=== PATIENT | female | born 2005 | race Two or more races ===

== ENCOUNTER 2023-11-08 23:52 | Emergency (ER) | payer OTHER, SELFPAY ==
[2023-11-09] VITALS: BP 111/79; PULSE 88; RESP 16; TEMP 36.1; O2SAT 100; BMI 18.5
[2023-11-09 03:12] VITALS: BP 118/72; PULSE 80; RESP 17; TEMP 36.6; O2SAT 99
--- NOTE | 2023-11-09 03:53 | ED_ITS ---
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 Cat is fully immunized and patient received rabies vaccination last year no active bleeding with the area of bite Related Data Previous Rx's ?Medication ?Instructions ?Recorded amoxicillin 875 mg-potassium 1 tab PO BID #20 tabs 11/09/23 clavulanate 125 mg tablet Allergies Allergy/AdvReac Type Severity Reaction Status Date / Time No Known Allergies Allergy Verified 11/09/23 00:02 Review of Systems 2 Review of Systems: Yes all other systems are reviewed and are negative PMFSH Social History Social History Advance Directives: No Advance Directives Information Provided: Yes Do you have a plan to hurt others: No Plan Physical Exam ED Vital Signs: Vital Signs - 24 hr 11/09/23 00:00 11/09/23 03:12 11/09/23 04:04 Temperature 97.0 F 97.9 F 97.9 F Pulse Rate 88 80 89 Respiratory Rate 16 17 16 Blood Pressure 111/79 118/72 125/81 Pulse Oximetry 100 99 100 Oxygen Delivery Method Room Air Room Air Room Air 11/09/23 05:45 Temperature 97.9 F Pulse Rate 89 Respiratory Rate 16 Blood Pressure 125/81 Pulse Oximetry 100 Oxygen Delivery Method Room Air BMI result Body Mass Index 18.5 Extrem Elbow/forearm/wrist images: 2 1. Superficial bite iglbert no skin breakdown Medications Administered Discontinued Medications Generic Name Dose Route Start Last Admin Trade Name Freq PRN Reason Stop Dose Admin Amoxicillin/Clavulanate Potassium 875 mg 11/09/23 03:59 11/09/23 04:35 Amoxicillin/Potassium Clav 875 Mg Tablet PO 11/09/23 04:00 875 mg ONCE ONE Administration Medical Decision Making Medical Decision Making [facility] Narrative: Patient immunized against rabies bit by cat was also immunized very superficial bite gilbert on the left forearm will give prophylactic Augmentin Discharge Plan Discharge Clinical Impression: Cat bite Patient Disposition: Home, Self-Care Instructions: Animal Bite (ED) Additional Instructions: Take antibiotic as prescribed Confirm about the Cat immunization status Watch the cat for 10 days If any rabies symptoms in Cat check your rabies titer and follow with PCP Prescriptions: New amoxicillin-pot clavulanate 875-125 mg tablet 1 tab PO BID Qty: 20 0RF Interventions: ED Discharge Assessment Last Done: 11/09/23 05:45 Discharge Date/Time: 11/09/23 04:45 Print Language: Mosotho
[2023-11-09 04:04] VITALS: BP 125/81; PULSE 89; RESP 16; TEMP 36.6; O2SAT 100
[2023-11-09] MEDS: Amoxicillin/Potassium Clav 875 MG TABLET PO (04:35)
[2023-11-09 05:45] VITALS: BP 125/81; PULSE 89; RESP 16; TEMP 36.6; O2SAT 100
== END 2023-11-09 04:45 | disposition home or self-care (01) ==
PROVIDERS: Emergency Provider Internal Medicine
DX: S51.852A Open bite of left forearm, initial encounter (principal); W55.01XA Bitten by cat, initial encounter; Y93.9 Activity, unspecified; Y92.9 Unspecified place or not applicable; Y99.0 Civilian activity done for income or pay
CPT/HCPCS: 99283

== ENCOUNTER 2024-06-26 12:57 | Outpatient (AMB) | payer OTHER, SELFPAY ==
--- OUTSIDE RECORDS SUMMARY | 2024-06-26 13:03 | XMS_ITS | Encounter Summary ---
Author Organization [facility] Address [address] [place] [phone] Phone Care Team Providers Care Quality Control Head Name Role Phone Moriah Carbajal MD Primary Care Provider [phone] Reason for Visit * Reason Comments Med Refill Encounter Details Date Type Department Care Team ([facility] st Contact Info) Description 06/03/2021 Refill [facility] [place] [address] [place] [address] Moriah Carbajal MD [address] [place] [address] Dysmenorrhea Social History Tobacco Use Types Packs/Day Years Used Date Smoking Tobacco: Never Smokeless Tobacco: Never Alcohol Use Standard Drinks/Week Comments No 0 (1 standard drink = 0.6 oz pur e alcohol) Hunger/Food Answer Date Recorded In the last 12 months, did y ou or your family ever eat less than you felt you should because there wasn't enough money for food? No 02/25/2021 Stable Housing Answer Date Recorded Are you worried that in the next 2 months you may not have stable housing? No 02/25/2021 Transportation Concerns Answer Date Rec orded In the last 12 months, have you or your family ever had to go without healthcare because you didn't have a way to get there? No 02/25/2021 Hazards in Home Answer Date Recorded Think about the place you li ve. Do you have problems with any of the following? Pests (mice or roaches), mold, no/not working smoke detectors, water leaks, no window guards. No 2020 Financing Utilities Answer Date Recorde d In the last 12 months, has t he electric, gas, oil, or water company threatened to shut off your services in your home? No 02/25/2021 Safety at Home Answer Date Recorded Are you or your family worried about feeling saf e in your home? No 02/25/2021 Outside Support Answer Date Recorded Do you feel that you need mo re support from other people or programs to help you care for yourself or your family? No 02/25/2021 Understanding Health Concerns Answer Da te Recorded Do you need help understandi ng your or your child's healthcare needs (diagnosis, medications, plan, etc.)? No 02/25/2021 Financing Health Concerns Answer Date R ecorded In the last 12 months, was t here a time when your child needed to see a doctor or get medications or supplies but could not because of cost? No 02/25/2021 Missing School or Work Answer Date Jose Miguel rded Did you or your child miss s chool or work because of a health problem that could have been avoided? No 02/25/2021 Comments No Sex and Gender Information Value Date Recorded Sex Assigned at Not on file Legal Sex Female 2:33 PM EDT Gender Identity Female 04/03/2023 7:59 AM EST Sexual Orientation Straight 08/16/2022 9: 35 AM EDT documented as of this encounter Miscellaneous Notes * Telephone Encounter - Von Wolf LPN - 06/03/2021 2:39 PM EST [facility] is requesting a refill on control. Last PE 02/25/21 documented in this encounter Plan of Treatment Not on file documented as of this encounter Visit Diagnoses Diagnosis Dysmenorrhea documented in this encounter Care Teams Quality Control Head Relationship Specialty Start Date End Date Moriah Carbajal MD [address] [place] [id number] PCP - General Pediatrics 11/13/18 03/11/24 documented as of this encounter
--- OUTSIDE RECORDS SUMMARY | 2024-06-26 13:03 | XMS_ITS | Encounter Summary ---
Author Organization [facility] Address [address] [place] [address] Phone Care Team Providers Care Spectacle Truer Name Role Phone Unavailable Primary Care Provider Unavailabl e Reason for Visit * Reason Comments Med Refill Encounter Details Date Type Department Care Team ([facility] Contact Info) Description 05/30/2024 Refill [facility] [place] [address] [place] [address] Moriha Carbajal MD [address] [place] [address] Dysmenorrhea Social History Tobacco Use Types Packs/Day Years Used Date Smoking Tobacco: Never Smokeless Tobacco: Never Alcohol Use Standard Drinks/Week Comments No 0 (1 standard drink = 0.6 oz pur e alcohol) Hunger/Food Answer Date Recorded In the last 12 months, did y ou or your family ever eat less than you felt you should because there wasn't enough money for food? No 08/16/2022 Stable Housing Answer Date Recorded Are you worried that in the next 2 months you may not have stable housing? No 08/16/2022 Transportation Concerns Answer Date Rec orded In the last 12 months, have you or your family ever had to go without healthcare because you didn't have a way to get there? No 08/16/2022 Hazards in Home Answer Date Recorded Think about the place you li ve. Do you have problems with any of the following? Pests (mice or roaches), mold, no/not working smoke detectors, water leaks, no window guards. Yes 2022 Financing Utilities Answer Date Recorde d In the last 12 months, has t he electric, gas, oil, or water [employer] threatened to shut off your services in your home? No 08/16/2022 Safety at Home Answer Date Recorded Are you or your family worried about feeling saf e in your home? No 08/16/2022 Outside Support Answer Date Recorded Do you feel that you need mo re support from other people or programs to help you care for yourself or your family? No 08/16/2022 Understanding Health Concerns Answer Da te Recorded Do you need help understandi ng your or your child's healthcare needs (diagnosis, medications, plan, etc.)? No 08/16/2022 Financing Health Concerns Answer Date R ecorded In the last 12 months, was t here a time when your child needed to see a doctor or get medications or supplies but could not because of cost? No 08/16/2022 Missing School or Work Answer Date Jose Miguel rded Did you or your child miss s chool or work because of a health problem that could have been avoided? No 08/16/2022 Comments No Sex and Gender Information Value Date Recorded Sex Assigned at Not on file Legal Sex Female 2:33 PM EDT Gender Identity Female 04/03/2023 7:59 AM EST Sexual Orientation Straight 08/16/2022 9: 35 AM EDT documented as of this encounter Miscellaneous Notes * Telephone Encounter - Frantz Spence LPN - 05/30/2024 10:06 AM EST Pharm requesting refill of OCP. Pt no longer under [facility]PA care documented in this encounter Plan of Treatment Not on file documented as of this encounter Visit Diagnoses Diagnosis Dysmenorrhea documented in this encounter
--- OUTSIDE RECORDS SUMMARY | 2024-06-26 13:03 | XMS_ITS | Clinical Summary ---
Author Organization [facility] Address [address] [place] [phone] Phone Care Team Providers Care Sales And Marketing Specialist Name Role Phone Unavailable Primary Care Provider Unavailabl e Allergies No known active allergies Medications loratadine (Claritin) 10 MG tabletIndication s:Nasal congestion Take 1 tablet (10 mg total) by mouth daily. 30 tablet 5 0 Active Spacer/Aero-Hold ing Chambers (OptiChamber Advantage-Med Mask) miscIndications: Mild intermittent asthma without complication Use as directed with inhaler. 2 each 0 Active Additional Information Patient not taking.Reported on 02/25/2021 albuterol HFA 108 (90 Base) MCG/ACT inhalerIndicatio ns:Mild intermittent asthma without complication Inhale 2 puffs every 4 (four) hours as needed for wheezing. 1 Units 4 Active levonorgestrel-e thinyl estradiol (Sronyx) 0.1-20 MG-MCG per tabletIndication s:Dysmenorrhea Take 1 tablet by mouth once daily. 84 tablet 4 Active Active Problems Problem Noted Date Diagnosed Date COVID 05/19/2021 Dysmenorrhea 02/25/2021 Overview (08/16/2022): 08/16/2022 (age 17yr): : Doing well on OCP, continue. Detailed History and Chronology of care: 02/25/2021 (age 16yr): regular menses. No FHx blood clots, no hx migraines, no TOB. Will start OCPs. Assessment & Plan (08/16/2022 9:23 AM EDT): 08/16/2022 (age 17yr): : Doing well on OCP, continue. Assessment & Plan (05/02/2021 5:46 PM EST): 05/02/2021 (age 16yr): Doing well on OCP, continue. Assessment & Plan (02/25/2021 6:08 PM EDT): 02/25/2021 (age 16yr): regular menses. No FHx blood clots, no hx migraines, no TOB. Will start OCPs. Epistaxis 12/07/2019 Overview (08/16/2022): 08/16/2022 (age 17yr): Having nose bleeds 1-2 times per months over the last 4 months. Short lived. Always left nostril. Has been using vaseline. - Will consider seeing ENT, will reach out if this is desired. Detailed History and Chronology of care: 12/07/2019 (age 14 yr 9 mo): epistaxis x 1 month, small amounts, once per week. It seems to be resolving. Last episode 4 weeks ago. 02/25/2021 (age 16yr): fully resolved. Assessment & Plan (08/16/2022 9:37 AM EDT): 08/16/2022 (age 17yr): : Having nose bleeds 1-2 times per months over the last 4 months. Short lived. Always left nostril. Has been using vaseline. - Will consider seeing ENT, will reach out if this is desired. Assessment & Plan (02/25/2021 2:22 PM EDT): 02/25/2021 (age 16yr): fully resolved. Assessment & Plan (12/07/2019 1:06 PM EDT): 12/07/2019 (age 14 yr 9 mo): continue to monitor, seems to be resolved on its own. Underweight 08/14/2018 Overview (11/17/2022): 08/16/2022 (age 17yr): :History of low BMI with concern for anorexia, good weight gain with cyproheptidine in the past. Weight loss 4 lbs over the last year noted 02/2021. Labs not concerning (CBC, Metab panel). BMI is stable just above 3rd %ile. Stopped med last year. - Pt requesting restart cyproheptadine. Rx'd today. Detailed History and Chronology of care: 02/05/2018 - 04/2018. Good weight gain with cyproheptidine (and was Rx'd ensure - was he taking it?) 04/2018 began losing weight again. BMI down to 4t %ile 03/25/[place] [facility] [place], thought due to calorie restriction. Was referred to knife machine operator. - following ED visit, has had slow weight gain. 06/16/2019, Rx'd cyproheptadine again for continued low BMI despite slow weight loss since 03/25/2020 12/07/2019 (age 14 yr 9 mo): good weight gain on cyprohept, likely not taking regularly (OK) 02/25/2021 (age 16yr): Weight loss 4 lbs over the last year,not taking cyproheptadine. Will restart at 4 mg TID. Labs not concerning (CBC, Metab panel). Assessment & Plan (08/16/2022 9:31 AM EDT): 08/16/2022 (age 17yr): History of low BMI with concern for anorexia, good weight gain with cyproheptidine in the past. Weight loss 4 lbs over the last year noted 02/2021. Labs not concerning (CBC, Metab panel). BMI is stable just above 3rd %ile. Stopped med last year. - Pt requesting restart cyproheptadine. Rx'd today. Assessment & Plan (05/02/2021 5:49 PM EST): 05/02/2021 (age 16yr): History of low BMI with concern for anorexia, good weight gain with cyproheptidine in the past. Weight loss 4 lbs over the last year noted 02/2021. Labs not concerning (CBC, Metab panel). 4 lb weight gain over 2 months on cyproheptadine. Assessment & Plan (02/25/2021 6:07 PM EDT): 02/25/2021 (age 16yr): History of low BMI with concern for anorexia, good weight gain with cyproheptidine in the past. Weight loss 4 lbs over the last year. 02/25/2021 (age 16yr): Has been eating 3 meals per day recently. She is not taking cyproheptadine. Will restart at 4 mg TID. Rx sent. Wt Readings from Last 3 Encounters: 02/25/21 90 lb (40.8 kg) (<1 %, Z= -2.72)* 12/07/19 94 lb 3.2 oz (42.7 kg) (3 %, Z= -1.94)* 06/16/19 90 lb (40.8 kg) (1 %, Z= -2.22)* * Growth percentiles are based on CDC (Girls, 2-20 Years) data. Assessment & Plan (12/07/2019 1:05 PM EDT): 12/07/2019 (age 14 yr 9 mo): weight up 4 lbs over 6 months, taking cyproheptidine. BMI back to baseline at 7-8%ile. Continue cyproheptadine for now. She reports taking it TID since 06/2019, but she only had one RF given back in June. Whatever she is taking, she is gaining weight so the goal is being met. Follow weight in 3-4 months. Has been referred to nutrition in the past. Will nee lab work up, EKG, adol med referral if weight drops again. History: 02/05/2018 - 04/2018. Good weight gain with cyproheptidine (and was Rx'd ensure - was he taking it?) 04/2018 began losing weight again. BMI down to 4t %ile 03/25/2019 [facility] [place], thought due to calorie restriction. Was referred to knife machine operator. - following ED visit, has had slow weight gain. 06/16/2019, Rx'd cyproheptadine again for continued low BMI despite slow weight loss since 03/25/2020 12/07/2019 (age 14 yr 9 mo): good weight gain on cyprohept, likely not taking regularly (OK) Assessment & Plan (12/04/2019 9:34 AM EDT): 06/16/2019 Her Weight is up only 2 lbs in 2.5 months. BMI is at the 4th percentile. Restart cyproheptidine. Will need labs, EKG, and refer to adolescent medicine if weight gain does not crab picker. Assessment & Plan (04/25/2019 3:42 PM EST): Weight is up 1.5 lbs in 1 month, will defer on checking labs today. Follow up 4- 6 weeks. I discussed the possibility of referral to [facility] if weight gain is not adequate or falls off. Assessment & Plan (08/14/2018 9:34 AM EDT): Has not been consistent with taking cyprohetadine lately and weight is back down. I have refilled this medication today and encouraged patient to take it to help improve appetite. Anxiety 04/22/2018 Overview (08/16/2022): 08/16/2022 (age 17yr): symptoms of social anxiety have improved over time. She thinks being out high school has helped. Detailed History and Chronology of care: 12/07/2019 (age 14 yr 9 mo): .Doing OK right now. Saw Angle through N in the past, she didn't feel it helped. She is doing a lot better now and doesn't feel she needs therapy at the present time. 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 Suggest short term therapy with [facility]. Will call to make intake appt ( not available for warm hand off today) Assessment & Plan (08/16/2022 9:37 AM EDT): 08/16/2022 (age 17yr): symptoms of social anxiety have improved over time. She thinks being out high school has helped. Assessment & Plan (05/02/2021 5:45 PM EST): 05/02/2021 (age 16yr): symptoms of social anxiety which cause nausea school health aide and cause her to cancel plans with friends. Suggest short term therapy with [facility]. Will call to make intake appt ([facility] not available for warm hand off today) Assessment & Plan (02/25/2021 6:08 PM EDT): 02/25/2021 (age 16yr): Having some issues with anxiety, gets nauseated prior going to school. Not interested in therapy or learning coping skills. Nausea related to anxiety prevents eating. Needs OV to discus further, may want to discuss meds. Assessment & Plan (12/07/2019 1:06 PM EDT): 12/07/2019 (age 14 yr 9 mo): continue to monitor, no current intervention needed. Assessment & Plan (08/14/2018 9:31 AM EDT): Improving with therapy ADHD 08/01/2017 Overview (08/16/2022): 08/16/2022 (age 17yr): Currently on no medication, doing well. Detailed History and Chronology of care: Concerta 27 mg - prescribed by [facility] as off 06/26/2014 Assessment & Plan (08/16/2022 9:21 AM EDT): 08/16/2022 (age 17yr): Currently on no medication, doing well. Assessment & Plan (02/25/2021 6:07 PM EDT): 02/25/2021 (age 16yr): Currently on no medication, doing well. Assessment & Plan (12/07/2019 12:07 PM EDT): 12/07/2019 (age 14 yr 9 mo): still doing well without meds Assessment & Plan (08/14/2018 9:33 AM EDT): Acute worsening in ability to concentrate. Patient continues to see therapist for anxiety. Will check hemoglobin levels today since she had a history of anemia. Mild intermittent asthma 08/01/2017 Overview (08/16/2022): 08/16/2022 (age 17yr): ProAir as needed, no controller medication Assessment & Plan (08/16/2022 9:22 AM EDT): 08/16/2022 (age 17yr): ProAir as needed, no controller medication Assessment & Plan (02/25/2021 6:06 PM EDT): 02/25/2021 (age 16yr): ProAir as needed, no controller medication Assessment & Plan (12/07/2019 12:07 PM EDT): 12/07/2019 (age 14 yr 9 mo): no current issues, last albuterol was during the winter. Assessment & Plan (08/14/2018 9:31 AM EDT): Currently well controlled. Resolved Problems Problem Noted Date Diagnosed Date Resolved Date Anemia 08/14/2018 12/04/2019 Overview (06/16/2019): History of borderline anemia, Hgb 11.0 in August, Labs done [place] [facility] [place]2019 show hgb of 12.6. Assessment & Plan (06/16/2019 4:26 PM EST): Currently not anemic Assessment & Plan (08/14/2018 9:33 AM EDT): Having difficulties with concentration will screen for anemia again today. Encouraged diet high in iron. Other acne 08/14/2018 02/25/2021 Overview (02/25/2021): 02/25/2021 (age 16yr): no current issues. Detailed History and Chronology of care: August 2018 - November 2018: Doxycycline 100 mg BIDand then switch to topical Clindamycin solution. 12/07/2019 (age 14 yr 9 mo): doing much better, using ceraVe. Not taking doxy. Assessment & Plan (02/25/2021 2:22 PM EDT): 02/25/2021 (age 16yr): no current issues. Assessment & Plan (12/07/2019 12:12 PM EDT): 12/07/2019 (age 14 yr 9 mo): doing much better, using ceraVe. Not taking doxy. Encounters Date Type Department Care Team Description 05/30/2024 Refill [facility] - [address] [id number] Moriah Carbajal MD Dysmenorrhea from Last 3 Months Immunizations Immunization Administration Dates Next Due COVID-19 Pfizer, bivalent, 12+ years 08/16/2022 COVID-19 Pfizer, la-sucros e, 12+ years 06/19/2021 DTaP 02/23/2012, 5,2003,07/02,2003 HPV Vaccine 9 Valent 08/14/2018,08/02/2017 Hep A, ped/adol 05/19/2011,03/18/2010 Hep B, ped/adol 2003,2003,2003 HiB 05/16/2004, 4,2003,04/27 IPV 03/22/2016, 4,2003,04/27 Influenza, injectable, quadr ivalent, preservative free 08/16/2022,02/25/2021,07/06/2020,02/05,03/22/2016 Influenza, intradermal, quad rivalent, preservative free 03/22/2016,06/24/2013,02/07/2012,05/19,04/18/2011,01/31/2010 MMR 02/28/2007,02/25/2004 Meningococcal B Trumenba 08/16/2022,02/25/2021 Meningococcal Conj (Menactra) MCV4P 12/07/2019,0 06/26/2014 Pneumococcal Conjugate 05/16/2004,2003,2003,04/27 Tdap 06/26/2014 Varicella 03/18/2010,02/25/2004 Family History Medical History Relation Name Comments No Known Problems Father Elmer Hyperlipidemia Maternal Grandmother No Known Problems Mother Nola Diabetes Paternal Grandfather Diabetes Paternal Grandmother Hyperlipidemia Paternal Grandmother Relation Name Status Comments Father Elmer Alive Maternal Grandfather Alive Maternal Grandmother Alive Mother Nola Alive Paternal Grandfather Alive Paternal Grandmother Alive Social History Tobacco Use Types Packs/Day Years Used Date Smoking Tobacco: Never Smokeless Tobacco: Never Tobacco Cessation:Counseling Given: No Alcohol Use Standard Drinks/Week Comments No 0 [...] Orientation Straight 08/16/2022 9: 35 AM EDT Last Filed Vital Signs Vital Sign Reading Time Taken Comments Blood Pressure 114/72 08/16/2022 8:59 AM EDT Pulse 96 08/16/2022 8:59 AM EDT Temperature 36.2 ??C (97.2 ??F) 12/07/2019 11:32 AM E DT Respiratory Rate - - Oxygen Saturation - - Inhaled Oxygen Concentration - - Weight 43.5 kg (96 lb) 08/16/2022 8:59 AM EDT Height 157.3 cm (5' 1.91 ) 08/16/2022 8:59 AM ED T Body Mass Index 17.61 08/16/2022 8:59 AM EDT Plan of Treatment Health Maintenance Due Date Last Done Comments Influenza Vaccines (#1) 2023 08/17/19, 02/25/2021, 07/06/2020, Additional history exists COVID-19 Vaccine (2023-2 5 season) 2024 08/16/2022, 06/19/2021, 10/28/2020, Additional history exists DTaP,Tdap,and Td Vaccines (7 - Td or Tdap) 06/26/2024 06/26/2014, 02/23/2012, 05/16/2004, Additional history exists Hepatitis B Vaccines Completed 2003, 2003, 2003 HIB Vaccines Completed 05/16/2004, 08/12, 2003, Additional history exists Pneumococcal Vaccine Completed 05/16/2004, 2003, 2003, Additional history exists MMR Vaccines Completed 02/28/2007, 02/25/2004 Varicella Vaccines Completed 03/18/2010, 02/25/2004 Hepatitis A Vaccines Completed 05/19/2011, 03/18/20 10 IPV Vaccines Completed 03/22/2016, 11/11, 2003, Additional history exists HPV Vaccines Completed 08/14/2018, 08/02/2017 Meningococcal Vaccine Completed 12/07/2019, 015 Men B Vaccine Completed 08/16/2022, 02/25/2021 Procedures * Due to [place] riskmethods law, this organization might not be sharing sensitive test results. Procedure Name Priority Date/Time Associated Diagnosis Comments CHLAMYDIA AND GONORRHEA, AMPLIFIED Routine 08/16/2022 10:37 AM EDT Encounter for screening examination for chlamydial infection from Last 3 Months or Most Recently Relevant to Health Maintenance Results * Due to [place] riskmethods law, this organization might not be sharing sensitive test results. * Chlamydia and Gonorrhoea, Amplified (08/16/2022 10:37 AM EDT) Chlamydia Trachomatis, DNA Probe NEGATIVE (NEG) [facility] Comment: No Chlamydia Trachomatis RNA detected in this patient's sample ? (REFERENCE RANGE/NORMAL VALUE: NOT DETECTED) ? Note: This test uses endocrinology physician- mediated amplification method to detect rRNA from C. Trachomatis URINE GC AMP PROBE NEGATIVE (NEG) [facility] Comment: No Neisseria Gonorrhoeae RNA detected in this patient's sample ? (REFERENCE RANGE/NORMAL VALUE: NOT DETECTED) ? NOTE: This test uses endocrinology physician-mediated amplification method to detect rRNA from N.Gonorrhoeae. A negative result does not preclude infection. In the case of a negative urine result, testing of an endocervical(female) or urethral (male) specimen is recommended if there is high clinical suspicion of infection. Due to very high sensitivity of Nucleic Acid Amplification Test, false positive results may occur. Therefore, specimen handling is extremely important. In patients in whom the disease is unlikely, additional sample for testing should be considered after an initial positive result. The performance characteristics of this test have not been evaluated in children. The Aptima Combo2 assay is not intended for the evaluation of suspected sexual abuse or for other medico-legal indications. The ordering provider should assess if the patient had consensual sex without risk of sexual abuse. Consult the [facility] if needed. Contact phone number . Therapeutic failure or success cannot be determined with the Aptima Combo2 assay since nucleic acid may persist following appropriate antimicrobial therapy. The Centers for Disease Control and Prevention (CDC) recommends confirmatory retesting using culture or a different nucleic acid amplification test when positive results occur, if indicated. Testing performed or reported by [facility], a Service of [facility], [address] [place] [address] Santi Montenegro MD, Perinatal Technician [facility]# [id number] Urine (Urine) 08/16/2022 10: 37 AM EDT 08/17/2022 4:27 AM EDT Moriah Carbajal MD LAB MICROBIOLOGY - GENERAL OR DERABLES Final Result [facility] from Last 3 Months or Most Recently Relevant to Health Maintenance
--- OUTSIDE RECORDS SUMMARY | 2024-06-26 13:03 | XMS_ITS | Data Portability ---
Author Organization [facility] woods [address] Address [address] [place] [id number] Care Team Providers Care Carpenter Helper Maintenance Name Role Phone [facility] Family Medicine Assessment No assessment recorded. Plan of Treatment Reminders Order Date Submit Date Provider Last Modified By Organization Details Last Modified Time Details Appointments None recorded. Lab rapid strep group A, throat 2022 023 [email or web address] 20995[facility], [address] [place] [address], [address], 3 15:59:21 streptococc us group A, culture, throat 2022 023 [place] [facility], [address] [place] [address], [address], 3 06:08:39 urinalysis, dipstick 2022 023 [email or web address] _[facility], [address] [place] [address], [address], 3 09:13:58 test, urine 2022 023 [email or web address] 20[facility], [address] [place] [address], [address], 3 09:13:59 culture, urine 2022 023 [facility], [address] [place] [address], [address], 3 20:06:43 Referral None recorded. Procedures None recorded. Surgeries None recorded. Imaging None recorded. Medication Orders nitrofurant oin monohydrate /macrocryst als 100 mg capsule 2022 023 [facility]acy #[id number], [address] [facility], [place], [address], 15:17:37 Patient TargetsNo targets recorded. Patient Instructions Encounter Date Encounter Id Patient Instructions Last Modified By Organization Details Last Modified Time 11/17/2022 [id number] You are going to be treated for a Urinary Tract Infection. The following are recommendations to help with your symptoms and recovery: 1. Drink Plenty of fluids - Stay hydrated 2. Finish full antibiotic course 3. I recommend starting a Probiotic - I recommend Florastor 4. If you take Azo - this will help the burning and urgency feeling - just be aware it will turn your urine bright yellow. I would not hesitate to be seen again if you develop: 1. Severe Back Pain 2. Abdominal Pain 3. Nausea and Vomiting 4. Vaginal Discharge or Bleeding 5. Fever > 101.0 You symptoms should improve within 72 hours for a typically UTI. If a urine culture was sent out to the lab for you we should get the results back within 4 days. This will be able to prove that your symptoms are caused by a UTI and it will also verify that the correct antibiotic was prescribed. Thank you for using [employer] - please don't hesistate to call our office if you have any questions or concerns. [email or web address] Not available 11/17/2022 09:13:42 11/28/2022 [id number] sore throat: car e instructions [email or web address] Not available 11/28/2022 15:59:19 Reason for Referral None Reported. Results Created Date Observation Date Name Description Value Unit Range Abnormal Flag Note LastModifiedBy Organization Detail LastModifiedTime 11/18/1911/21/2022 URINE CULTU SHREYA MILES urine culture, routine FINAL abnormal Not Available [facility] ([facility]) [address] [facility], [place], [address], 11/21/2022 12:06:45 11/18/1911/21/2022 URINE CULTU RE, ROUTI NE result 1 [facility] abnormal Cefaz radha <=4 ug/mL Cefaz radha with an DANTE <=16 predi cts susce ptibi lity to the oral agent s cefac karli, cefdi may, cefpo doxim e, cefpr ozil, cefur oxime , cepha lexin , and lorac arbef when used for thera py of uncom plica luis urina ry tract infec tions due to E. coli, Klebs iella pneum oniae , and Prote us mirab ilis. Great er than 100,0 00 colon y formi ng units per mL Not Available [facility] ([facility]) [address] [facility], [place], [address], 11/21/2022 12:06:45 11/18/19 23 11/21/2022 URINE CULTU RE, ROUTI NE antimicrobia l susceptibili ty COMMEN T S = Susce ptibl e; I = Inter media te; R = Resis tant P = Posit alicja; N = Negat alicja MICS are expre ssed in micro grams per mL Antib iotic RSLT# 1 RSLT# 2 RSLT# 3 RSLT# 4 Amoxi cilli n/Cla vulan ic Acid S Ampic illin R Cefep carmela S Ceftr iaxon e S Cefur oxime S Cipro floxa henry S Ertap enem S Genta micin S Imipe nem S Levof loxac in S Merop enem S Nitro furan toin S Piper acill in/Ta zobac mon S Tetra cycli ne S Tobra mycin S Trime thopr im/Teresa lfa S Not Available [facility] ([facility]) [address] [facility], [place], [address], 11/21/2022 12:06:45 11/18/19 23 11/17/2022 pregn jamila test, urine Unknown Analyte Normal = Negati ve Not Available [facility] [address] [place] [address], [place], [address], 11/17/2022 08:51:36 11/18/19 23 11/17/2022 pregn jamila test, urine Unknown Analyte negati ve Not Available jose armando chavez [address], [place], [address], 11/17/2022 08:51:36 11/18/19 23 11/17/2022 urina lysis , dipst ick Unknown Analyte Normal = light yellow Not Available jose armando chavez [address], [place], [address], 11/17/2022 08:51:28 11/18/19 23 11/17/2022 urina lysis , dipst ick Unknown Analyte Yellow Not Available percy [address], [place], [address], 11/17/2022 08:51:28 11/18/19 23 11/17/2022 urina lysis , dipst ick Unknown Analyte Cloudy Not Available percy [address], [place], [address], 11/17/2022 08:51:28 11/18/1911/17/2022 urina lysis , dipst ick Unknown Analyte Normal = clear Not Available jose armando chavez [address], [place], [address], 11/17/2022 08:51:28 11/18/19 23 11/17/2022 urina lysis , dipst ick Unknown Analyte Normal = negati ve Not Available jose armando chavez [address], [place], [address], 11/17/2022 08:51:28 11/18/19 23 11/17/2022 urina lysis , dipst ick Unknown Analyte Negati ve Not Available jose armando chavez [address], [place], [address], 11/17/2022 08:51:28 11/18/19 23 11/17/2022 urina lysis , dipst ick Unknown Analyte Normal = Negati ve Not Available jose armando chavez [address], [place], [address], 11/17/2022 08:51:28 11/18/19 23 11/17/2022 urina lysis , dipst ick Unknown Analyte Negati ve Not Available 20[address] ch[facility] [address], [place], [address], 11/17/2022 08:51:28 11/18/1911/17/2022 urina lysis , dipst ick Unknown Analyte Normal = Negati ve Not Available 2099j[address] arm[address] ch[address], [place], [address], 11/17/2022 08:51:28 11/18/1911/17/2022 urina lysis , dipst ick Unknown Analyte 40 mg/dL Not Available jose armando chavez [address], [place], [address], 11/17/2022 08:51:28 11/18/19 23 11/17/2022 urina lysis , dipst ick Unknown Analyte Normal = 1.010, 1.015, 1.020 Not Available jose armando chavez [address], [place], [address], 11/17/2022 08:51:28 11/18/19 23 11/17/2022 urina lysis , dipst ick Unknown Analyte 1.030 Not Available [address] [place] [address]keanu [address], [place], [address], 11/17/2022 08:51:28 11/18/19 23 11/17/2022 urina lysis , dipst ick Unknown Analyte Normal = Negati ve Not Available jose armando chavez [address], [place], [address], 11/17/2022 08:51:28 11/18/1911/17/2022 urina lysis , dipst ick Unknown Analyte Large Not Available [facility] [address], [place], [address], 11/17/2022 08:51:28 11/18/1911/17/2022 urina lysis , dipst ick Unknown Analyte Normal = 6.5, 7.0, 7.5, 8.0 Not Available [facility] [address], [place], [address], 11/17/2022 08:51:28 11/18/1911/17/2022 urina lysis , dipst ick Unknown Analyte 6.5 Not Available [address], [place], [address], 11/17/2022 08:51:28 11/18/1911/17/2022 urina lysis , dipst ick Unknown Analyte Normal = Negati ve Not Available jose armando chavez [address], [place], [address], 11/17/2022 08:51:28 11/18/1911/17/2022 urina lysis , dipst ick Unknown Analyte 300 mg/dL Not Available jose armando chavez [address], [place], [address], 11/17/2022 08:51:28 11/18/1911/17/2022 urina lysis , dipst ick Unknown Analyte Normal = 0.2, 1.0 Not Available [facility] [address], [place], [address], 11/17/2022 08:51:28 11/18/19 23 11/17/2022 urina lysis , dipst ick Unknown Analyte 2.0 E.U./d L Not Available 2099jose armando [address], [place], [address], 11/17/2022 08:51:28 11/18/19 23 11/17/2022 urina lysis , dipst ick Unknown Analyte Normal = Negati ve Not Available [address] [place] [address], [place], [address], 11/17/2022 08:51:28 11/18/19 23 11/17/2022 urina lysis , dipst ick Unknown Analyte Positi ve Not Available [address] [place] [address], [place], [address], 11/17/2022 08:51:28 11/18/19 23 11/17/2022 urina lysis , dipst ick Unknown Analyte Normal = Negati ve Not Available [address] [place] [address], [place], [address], 11/17/2022 08:51:28 11/18/19 23 11/17/2022 urina lysis , dipst ick Unknown Analyte Small Not Available [address] [place] [address], [place], [address], 11/17/2022 08:51:28 11/29/19 23 12/01/2022 BETA STREP GP A CULTU RE beta strep gp A culture NEGATI VE Refer ence Range : Negat alicja Not Available [facility] ([facility]) [address] [facility], [place], [address], 12/01/2022 06:08:39 11/29/19 23 11/28/2022 rapid strep group A, throa t Unknown Analyte Normal = Negati ve Not Available [address] [place] [address], [place], [address], 11/28/2022 15:17:18 11/29/19 23 11/28/2022 rapid strep group A, throa t Unknown Analyte negati ve Not Available [facility] [address] [place] [address], [address], 11/28/2022 15:17:18 Result Notes None recorded. Problems No Known Problems Medical Equipment None Reported. Allergies No known drug allergies Medications Not known to be on any medication Vitals Date Recorded Body height Body mass index (BMI) Body mass index (BMI) Percentile per age and sex Body weight Respiratory rate Pain severity - 0-10 verbal numeric rating [Score] - Reported Oxygen saturation Oxygen saturation in Arterial blood by Pulse oximetry Heart rate Body temperature Systolic blood pressure Diastolic blood pressure Provider Name and Address Organization Details Last Updated DateTime 3 154.94 cm 17.6 kg/m2 4 % 52353.0 9 g 18 /min 4 100 % 100 % 80 /min 98.2 [degF] 115 mm[Hg] 82 mm[Hg] Siena Jimenez PA - [facility] 3 08:52:42 Date Recorded Body height Body mass index (BMI) Percentile per age and sex Body mass index (BMI) Body weight Pain severity - 0-10 verbal numeric rating [Score] - Reported Respiratory rate Oxygen saturation Oxygen saturation in Arterial blood by Pulse oximetry Heart rate Body temperature Systolic blood pressure Diastolic blood pressure Provider Name and Address Organization Details Last Updated DateTime 3 154.94 cm 4 % 17.6 kg/m2 56317.0 9 g 8 18 /min 100 % 100 % 73 /min 98.6 [degF] 115 mm[Hg] 76 mm[Hg] [facility]rena Nesbitt [facility] - [facility] 3 15:19:21 Social History Question Answer Notes LastModified by Organizat ion Details LastModified Time Tobacco Smoking Status Never Smoker Siena lion PA - [facility] 11/17/2022 08:51:15 What Is Your Level Of Alcohol Consumption? None Information not available 11/17/2022 Have You Had Direct Contact, Or Contact During Intimacy, With Monkeypox Rash, Scabs, Or Body Fluids From A Person With Monkeypox? No Information not available 11/17/2022 Do You Use Any Illicit Or Recreational Drugs? No Information not available 11/17/2022 Have You Recently Traveled Abroad? No Information not available 11/17/2022 Do You Or Have You Ever Used Any Other Forms Of Tobacco Or Nicotine? No Information not available 11/17/2022 Sex: Unknown Functional Status None recorded. Mental Status None recorded. Family History Relationship Description Onset Age of this Age Resolved Age Notes LastModified by Organization Details LastModified Time Father No current problems or disability Not available 11/17 08:51:08 Mother No current problems or disability Not available 11/17 08:51:08 Medical History No medical history recorded. Gynecological History Statement/Question Response Date of LMP 11/11/2022 Is there any chance of ? No LMP Approximate Obstetrics History GPAL:G 0 P 0 0 0 0 Immunizations Vaccine Type Date Status Note Provider Nam e and Address Organization Details Recorded Time meningococcal B, recombinant 3 completed Siena Tony null, PA - [facility] 11/17/2022 08:51:01 meningococcal B, recombinant 1 completed Siena Tony null, PA - [facility] 11/17/2022 08:51:01 HPV9 8 completed Siena Tony null, PA - [facility] 11/17/2022 08:51:01 HPV9 9 completed Siena Broseley null, PA - [facility] 11/17/2022 08:51:01 IPV 6 completed Siena Tony null, PA - [facility] 11/17/2022 08:51:01 COVID-19, mRNA, LNP-S, PF, 30 mcg/0.3 mL dose 1 completed Siena Broseley null, PA - [facility] 11/17/2022 08:51:01 COVID-19, mRNA, LNP-S, PF, 30 mcg/0.3 mL dose 1 completed Siena Tony null, PA - [facility] 11/17/2022 08:51:01 COVID-19, mRNA, LNP-S, PF, 30 mcg/0.3 mL dose, la-sucrose 2 completed Siena Broseley null, PA - [facility] 11/17/2022 08:51:01 COVID-19, mRNA, LNP-S, bivalent, PF, 30 mcg/0.3 mL dose 3 completed Siena Tony null, PA - [facility] 11/17/2022 08:51:01 meningococcal MCV4P 0 completed Siena Tony null, PA - [facility] 11/17/2022 08:51:01 Influenza, split virus, quadrivalent, PF 1 completed Siena Broseley null, PA - [facility] 11/17/2022 08:51:01 Influenza, split virus, quadrivalent, PF 3 completed Siena Broseley null, PA - [facility] 11/17/2022 08:51:01 Influenza, split virus, quadrivalent, PF 8 completed Siena Broseley null, PA - [facility] 11/17/2022 08:51:01 Influenza, split virus, quadrivalent, PF 1 completed Siena Tony null, PA - [facility] 11/17/2022 08:51:01 Influenza, split virus, quadrivalent, PF 6 completed Siena Broseley null, PA - [facility] 11/17/2022 08:51:01 Past Encounters Encounter ID Performer Location Encounter Start Date Encounter Closed Date Diagnosis/Indication Diagnosis SNOMED-CT Code Diagnosis ICD10 Code Diagnosis Note [id number] [address] [address] 05/29/2019 11:24:22 05/29/2019 12:53:05 [id number] [address] [address] 06/30/2021 16:17:26 06/30/2021 17:36:13 [id number] [facility] [address] [place] [address] 11/17/2022 08:09:44 11/17/2022 09:28:39 Dysuria 76558770 R30.0 Urine dip does suggest UTI.Pregna ncy Test was negative. [id number] Emiliano Og MD [facility] [address] [place] [address] 11/28/2022 13:46:21 11/28/2022 16:15:35 Acute pharyngitis 110848955 J02.9 Please follow up with PCP or Urgent Care in 3-5 days if no improvemen t or if any new symptoms occur that are concerning .Call 911 or go to nearest ER if you develop any shortness of breath, chest pain, severe headache, dizziness, or other concerning symptoms Health Concerns Section Related Observation LastModified by Organization Detai ls LastModified Time None Recorded Concern Status LastModified by Organization Details LastModified Time None Recorded Advance Directives Directive None Recorded Payers Encounter Date Sequence Insurance Name Policy Number Policy Andersen Covered Member ID Andersen Member ID Guarantor Name 05/29/2019 2 [employer] [id number] Elmer Boothe [id number] Padmini Brooks 06/30/2021 1 [facility] [id number] Padmini Brooks [id number] Mcandrewsmargarita Brooks 06/30/2021 2 [employer] [id number] Elmer Boothe [id number] 11/17/2022 1 [facility] [id number] Padmini Brooks [id number] Mcandrewsmargarita Brooks 11/17/2022 2 [employer] [id number] Elmer Boothe [id number] [facility] 11/28/[address] [facility] [id number] Padmini Brooks [id number] Padmini Brooks Notes Date Note Type Note Provider Name and Address Organization Details Recorded Time 3 text/html Urinary Complaint FemaleReported bypatient.source of patient informationInformation obtained from patient; Patient arrived at Urgent Care ambulatory UTI Symptoms:no pain in the flank; no fever/chills; no incontinence; no recurrent UTI;blood in the urine;urgency;urinary frequency Severity:mild Duration:3 daysNotes:The patient has never had a UTI. She states she had her period and was having normal cramping. She states that she saw blood in her urine but didn't think too much of it because of the period. She states now the blood in the urine is more and she is having urgency. No fever. Feels off. No fever. The patient has minimal burning with urination. No discharge. Denies flank pain. Has vomited though - but no nausea now. REMINGTON GARCIA [address] [place], [address], [place] 11/17/2022 09:18:28 3 text/html Sore throatReported bypatient.Source of patient informationInformation obtained from patient; Patient arrived at Urgent Care ambulatory Location:throat Severity:mild Quality:hurts to swallow Onset/Timin days Associated Symptoms:no sputum production; no shortness of breath; no wheezing; no sinus pain; no vomiting; no nausea; No hoarseness;coughing Context:no sick contacts; no foreign travel; non-smoker Emiliano Og MD [address] [place], [address], [facility] 11/28/2022 18:48:51 OBGyn Episode No OBEpisode recorded.
--- NOTE | 2024-06-26 13:16 | A.OFFPC_ITS ---
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 Pt states she never had a pap smear done. Allergies No Known Allergies Allergy (Verified 06/26/24 13:17) Tobacco use date assessed: 06/26/24 Dental Screening Dental Screen Date: 06/26/24 Did you have a dental visit in the last 12 months?: Yes Did you have a dental problem in the last 6 months where you did not have access to dental care?: No Was dental information given to patient?: Patient has dentist [facility] Medical History (Updated 06/26/24 @ 13:42 by Yasmeen Millard MD) Anxiety and depression History of ADHD Uses control Dysmenorrhea Surgical History (Updated 06/26/24 @ 13:38 by Yasmeen Millard MD) No pertinent past surgical history Family History (Updated 06/26/24 @ 13:41 by Yasmeen Millard MD) Father Essential hypertension Mother Depression with anxiety Paternal Aunt Bipolar disorder Social History Housing: Apartment Patient Tobacco Use Status: Never used Tobacco e-Cigarette/Vaping Use: Never Used service: No Current occupational status: employed Cognitive needs: No Hearing needs: No Vision needs: Yes Female Reproductive History Menstrual control method: pills Questionnaire PHQ-9 Over the last 2 weeks, how often have you been bothered by any of the following problems? 1. Little interest or pleasure in doing things: more than half the days 2. Feeling down, depressed, or hopeless: several days 3. Trouble falling or staying asleep, or sleeping too much: nearly every day 4. Feeling tired or having little energy: nearly every day 5. Poor appetite or overeating: several days 6. Feeling bad about yourself - or that you are a failure or have let yourself or your family down: not at all 7. Trouble concentrating on things, such as reading the newspaper or watching television: not at all 8. Moving or speaking so slowly that other people could have noticed. Or the opposite - being so fidgety or restless that you have been moving around a lot more than usual: not at all 9. Thoughts that you would be better off or of hurting yourself in some way: not at all Total score: 10 Depression Screening Interpretation: Positive Depression Screening Done: Yes 06377 - PHQ-9 Billing: Yes Source: Developed by Drs. Caio Hernandez, Joleen Phelps, Micheal Villareal and colleagues, with an educational sana from [employer]. Thrive Questionnaire Date Thrive assessed: 06/26/24 I am a: Patient What is your living situation today?: I have a steady place to live Within the past 12 months, did the food you bought not last and you didn't have the money to get more?: Never true Within the past 12 months, did you worry whether your food would run out before you got money to buy more?: Never true Do you have trouble paying for medicines?: No Do you have trouble getting transportation to medical appointments?: No Do you have trouble paying your heating and electricity bill?: No Do you have trouble taking care of your child, family member or friend?: No Do you have trouble with day-to-day activities such as bathing, preparing meals, shopping, managing finances, etc.?: No Are you currently unemployed and looking for a job?: No Are you interested in more education?: No Please select the resources that you would like help with: None Currently or been in a relationship where the following occur: No concerns reported THRIVE Score: 0 AUDIT C Alcohol Use Questionnaire (AUDIT-C) 1. How often do you have a drink containing alcohol?: Monthly or less 2. How many drinks containing alcohol do you have on a typical day when you are drinking?: 1 or 2 3. How often do you have six or more drinks on one occasion?: Never Total Score: 1 Score Reviewed/Action Taken: Yes JONAH-7 AMB Questionnaire JONAH-7 Date JONAH - 7 assessed: 06/26/24 Feeling nervous, anxious, or on edge: 3 = Nearly every day Not being able to stop or control worryin = Nearly every day Worrying too much about different things: 1 = Several days Trouble relaxin = Nearly every day Being so restless that it is hard to sit still: 3 = Nearly every day Becoming easily annoyed or irritable: 2 = More than half the days Feeling afraid as if something awful might happen: 0 = Not at all Total JONAH-7 score (0-4 normal; 5-9 mild; 10-14 moderate; 15-21 severe): 15 Source: Developed by Drs. Caio Hernandez, Joleen Phelps, Micheal Villareal and colleagues, with an educational sana from [employer]. 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, has myopia Physical exam (Primary Care) Vital Signs: Last Vital Signs Temp 98 F 06/26/24 13:17 Pulse 81 06/26/24 13:17 Resp 16 06/26/24 13:17 BP 118/76 06/26/24 13:17 Pulse Ox 97 06/26/24 13:17 Oxygen Delivery Method Room Air 06/26/24 13:17 BMI result Body Mass Index 18.4 Tobacco/Smoking Status: Tobacco use Status Tobacco use date assessed 06/26/24 06/26/24 13:21 Patient Tobacco Use Status Never used Tobacco 06/26/24 13:21 e-Cigarette/Vaping Use Never Used 06/26/24 13:21 PHQ-9: PHQ-9 Score PHQ-9: Total score 10 06/26/24 13:31 Depression Screening Interpretation: Positive Thrive Assessment: Date of Thrive Assessment Date Thrive assessed 06/26/24 06/26/24 13:21 Currently or been in a relationship where the following occur: No concerns reported Immunizations Boostrix Tdap 2.5 Lf unit-8 mcg-5 Lf/0.5 mL intramuscular syringe Performing Provider: Yasmeen Millard MD Performing Location: [facility] Administered by: Kerri Florence CMA on 06/26/24 14:06 Dose Route Admin Location Dispensed Lot Number Expiration Date NDC Registered Clinical Dietitian 0.5 mL IM Right Deltoid 0.5 mL [id number] 07/30/26 01766-513-68 [employer] VIS Given Date VIS Provided VIS Publication Date 06/26/24 Single Vaccine 21 Eligibility Eligibility Date Funding Source Not VFC Eligible 06/26/24 Private Coding Level of Care Code New Pt Prev Care 18-39yr(19293 Diagnoses Annual visit for general adult medical examination with abnormal findings Z00. Dysmenorrhea N94.6 Uses control Z78.9 Anxiety and depression F41.9; F32.A Additional Codes JOANH-7 Assessment Billing - JONAH-7 Assessment Tool: JONAH-7 Assessment 94910 ([id number]) PHQ-9 - 06796 - PHQ-9 Billing: Yes ([id number]) Assessment & Plan Assessment & Plan (1) Annual visit for general adult medical examination with abnormal findings: Code(s): Z00. - Encounter for general adult medical examination with abnormal findings Plan: tdap given , make it flu vaccine at the pharmacy or here at the clinic after a week (2) Dysmenorrhea: Code(s): N94.6 - Dysmenorrhea, unspecified Category: Medical (3) Uses control: Code(s): Z78.9 - Other specified health status Category: Social Hx (4) Anxiety and depression: Code(s): F41.9 - Anxiety disorder, unspecified; F32.A - Depression, unspecified Category: Medical Plan: Started on escitalopram 5 mg per tablet to take once a day either morning or night. Declines referral for counseling, will see her back for follow-up in 4 weeks via telehealth Orders: Orders Lipid Panel Today Z00.01 - Encounter for general adult medical examination with abnormal findings, Z13.1 - Encounter for screening for diabetes mellitus, Z13.220 - Encounter for screening for lipoid disorders, Z23 - Encounter for immunization Basic Metabolic Panel Fasting Today Z00.01 - Encounter for general adult medical examination with abnormal findings, Z13.1 - Encounter for screening for diabetes mellitus, Z13.220 - Encounter for screening for lipoid disorders, Z23 - Encounter for immunization Aspartate Amino Transferase Today Z00.01 - Encounter for general adult medical examination with abnormal findings, Z13.1 - Encounter for screening for diabetes mellitus, Z13.220 - Encounter for screening for lipoid disorders, Z23 - Encounter for immunization Complete Blood Count Auto Diff Today Z00.01 - Encounter for general adult medical examination with abnormal findings, Z13.1 - Encounter for screening for diabetes mellitus, Z13.220 - Encounter for screening for lipoid disorders, Z23 - Encounter for immunization TDaP Immunization Today Z23 - Encounter for immunization TSH reflex Free T4 Today Z00.01 - Encounter for general adult medical examination with abnormal findings, Z13.1 - Encounter for screening for diabetes mellitus, Z13.220 - Encounter for screening for lipoid disorders, Z23 - Encounter for immunization Alanine Aminotransferase Today Z00.01 - Encounter for general adult medical examination with abnormal findings, Z13.1 - Encounter for screening for diabetes mellitus, Z13.220 - Encounter for screening for lipoid disorders, Z23 - Encounter for immunization 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
[2024-06-26 13:17] VITALS: BP 118/76; PULSE 81; RESP 16; TEMP 36.6; O2SAT 97; BMI 18.4
== END 2024-06-26 14:05 | disposition home or self-care (01) ==
PROVIDERS: Visit Provider Internal Medicine
DX: Z23 Encounter for immunization (principal)

== ENCOUNTER 2024-06-26 12:57 | Outpatient (REF) | payer OTHER, SELFPAY ==
--- OUTSIDE RECORDS SUMMARY | 2024-06-26 14:10 | XMS_ITS | Encounter Summary ---
Author Organization [facility] Address [address] [place] [address] Phone Care Team Providers Care Research Nurse Practitioner Name Role Phone Unavailable Primary Care Provider Unavailabl e Reason for Visit * Reason Comments Med Refill Encounter Details Date Type Department Care Team ([facility] Contact Info) Description 05/30/2024 Refill [facility] [place] [address] [place] [address] Moriah Carbajal MD [address] [place] [address] Dysmenorrhea Social History Tobacco Use Types Packs/Day [...] t he electric, gas, oil, or water [employer] threatened to shut off your services in [...]
--- OUTSIDE RECORDS SUMMARY | 2024-06-26 14:11 | XMS_ITS | Encounter Summary ---
Author Organization [facility] Address [address] [place] [phone] Phone Care Team Providers Care Recyclable Materials Distributor Name Role Phone Moriah Carbajal MD Primary Care Provider [phone] Reason for Visit * Reason Comments Med Refill Encounter Details Date Type Department Care Team ([facility] st Contact Info) Description 06/03/2021 Refill [facility] [place] [address] [place] [address] Moriah Carbajal MD [address] [place] [address] Dysmenorrhea Social History Tobacco Use Types Packs/Day [...] Dysmenorrhea documented in this encounter Care Teams Recyclable Materials Distributor Relationship Specialty Start Date End Date Moriah Carbajal MD [address] [place] [id number] PCP - General Pediatrics 11/13/18 03/11/24 documented as of this encounter
--- OUTSIDE RECORDS SUMMARY | 2024-06-26 14:11 | XMS_ITS | Clinical Summary ---
Author Organization [facility] Address [address] [place] [phone] Phone Care Team Providers Care Attending Anesthesiologist Name Role Phone Unavailable Primary Care Provider [...] again. BMI down to 4t %ile 03/25/2019 [facility] ED for dizziness, thought due to calorie restriction. Was referred to technical sales representatives. - following ED visit, has had slow [...] again. BMI down to 4t %ile 03/25/2019 [facility] ED for dizziness, thought due to calorie restriction. Was referred to technical sales representatives. 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 Assessment & Plan (04/25/2019 3:42 PM EST): Weight is up 1.5 lbs in 1 month, will defer on checking labs today. Follow up 4- 6 weeks. 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 Suggest short term therapy with [facility]. Will call to make intake appt ( not available for warm hand off today) Assessment & Plan (08/16/2022 9:37 AM EDT): 08/16/2022 (age 17yr): symptoms of social anxiety have improved over time. She thinks being out high school has helped. 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 Assessment [...] Type Department Care Team Description 05/30/2024 Refill [facility] - [address] [address] Moriah Carbajal MD Dysmenorrhea from Last 3 [...] Completed 08/16/2022, 02/25/2021 Procedures * Due to [employer] [place] [employer] law, this organization might not be sharing sensitive test results. Procedure Name Priority Date/Time Associated Diagnosis Comments CHLAMYDIA AND GONORRHEA, AMPLIFIED Routine 08/16/2022 10:37 AM EDT Encounter for screening examination for chlamydial infection from Last 3 Months or Most Recently Relevant to Health Maintenance Results * Due to [place] [employer] law, this organization might not be sharing sensitive test results. * Chlamydia and Gonorrhoea, Amplified (08/16/2022 10:37 AM EDT) Chlamydia Trachomatis, DNA Probe NEGATIVE (NEG) [facility] Comment: No Chlamydia Trachomatis RNA detected in this patient's sample ? (REFERENCE RANGE/NORMAL VALUE: NOT DETECTED) ? Note: This test uses senior sous chef- mediated amplification method to detect rRNA from C. Trachomatis URINE GC AMP PROBE NEGATIVE (NEG) [facility] Comment: No Neisseria Gonorrhoeae RNA detected in this patient's sample ? (REFERENCE RANGE/NORMAL VALUE: NOT DETECTED) ? NOTE: This test uses senior sous chef-mediated amplification method to detect rRNA from N.Gonorrhoeae. [...] without risk of sexual abuse. Consult the [facility] if needed. Contact phone number . Therapeutic failure or success cannot be determined with the Aptima Combo2 assay since nucleic acid may persist following appropriate antimicrobial therapy. The Centers for Disease Control and Prevention (CDC) recommends confirmatory retesting using culture or a different nucleic acid amplification test when positive results occur, if indicated. Testing performed or reported by [facility], a Service of [facility], [address] [place] [address] Santi Montenegro MD, Synthetic Department Supervisor [facility]# [id number] Urine (Urine) 08/16/2022 10: 37 AM EDT 08/17/2022 4:27 AM EDT Moriah Carbajal MD LAB MICROBIOLOGY - GENERAL OR DERABLES Final Result [facility] from Last 3 Months or Most Recently Relevant to Health Maintenance
[2024-06-26 16:06] LABS: MANUAL DIFF FLAG NO
[2024-06-26 16:13] LABS: Basophils Absolute Auto 0.1 X10*3/uL (0.0-0.2); Basophils Percent Auto 0.9 % (0-2); Eosinophils Absolute Auto 0.1 X10*3/uL (0.0-0.4); Eosinophils Percent Auto 2.3 % (0-4); Hematocrit 40.8 % (37.0-47.0); Hemoglobin 13.2 g/dl (12.0-16.0); Imm Gran Abs Auto 0.05 X10*3/uL (0.00-0.03); Imm Gran Pct Auto 0.9 % (0.0-0.4); Lymphocytes Absolute Auto 1.6 X10*3/uL (1.2-4.9); Lymphocytes Percent Auto 28.3 % (20-40); Mean Corpuscular HGB Conc 32.4 g/dl (31.0-35.0); Mean Corpuscular Hemoglobin 28.9 pg (27.0-33.0); Mean Corpuscular Volume 89.5 fL (80.0-98.0); Mean Platelet Volume 9.8 fL (9.4-12.3); Monocytes Absolute Auto 0.5 X10*3/uL (0.1-1.2); Monocytes Percent Auto 9.2 % (2-11); Neutrophils Absolute Auto 3.4 x10*3/uL (2.0-8.3); Neutrophils Percent Auto 58.4 % (45-73); Platelet Count 239 X10*3/uL (160-400); Red Blood Count 4.56 X10*6/uL (4.20-5.50); Red Cell Distribution Width 12.1 % (11.0-16.0); White Blood Count 5.8 X10*3/uL (4.8-10.8)
[2024-06-26 16:34] LABS: Alanine Aminotransferase 16 U/L (0-31); Anion Gap 12 (12-20); Aspartate Amino Transferase 25 U/L (5-31); Blood Urea Nitrogen 7 mg/dL (9-16); Calcium 9.1 mg/dL (8.4-10.2); Carbon Dioxide 23 mmol/L (22-29); Chloride 110 mmol/L (96-108); Cholesterol 133 mg/dL (<200); Estimated Glomerular Filt Rate > 60; Glucose Fasting 83 mg/dL (60-99); HDL Cholesterol 51 mg/dL (>40); LDL Cholesterol Calculated 73 mg/dL (<100); Sodium 141 mmol/L (135-145); Triglycerides 47 mg/dL (<150)
[2024-06-26 16:51] LABS: TSH reflex Free T4 1.17 uIU/mL (0.32-4.0)
== END 2024-06-26 12:58 | disposition home or self-care (01) ==
LOC: HO.HMGCLDS 12:57
PROVIDERS: Visit Provider Internal Medicine
DX: Z00.01 Encounter for general adult medical examination with abnormal findings (principal); Z23 Encounter for immunization; Z13.6 Encounter for screening for cardiovascular disorders; N94.6 Dysmenorrhea, unspecified; F32.A Depression, unspecified; F41.9 Anxiety disorder, unspecified
CPT/HCPCS: 36415; 80048; 80061; 84443; 84450; 84460; 85025; 90471; 90715; 96127

== ENCOUNTER 2024-07-25 09:39 | Outpatient (AMB) | payer OTHER, SELFPAY ==
--- NOTE | 2024-07-25 09:37 | MHC.PC.OV ---
Intake Visit Reasons: 4w f/u Iphone Allergies No Known Allergies Allergy (Verified 07/25/24 10:04) Medication List - Last Reconciled 07/25/24 by Yasmeen Millard MD escitalopram oxalate 5 mg PO DAILY levonorgestrel-ethinyl estrad 0.1-20 mg-mcg (Vienva) 1 tab PO DAILY Tobacco use date assessed: 06/26/24 Dental Screening Dental Screen Date: 06/26/24 HPI 4w f/u Iphone HPI Details 19-year-old lady here today for follow-up on anxiety and depression. She was started on escitalopram 5 mg per tablet , which she has been taking at night. States that she has been sleeping better , and anxiety symptoms have resolved since starting the medication. Denies any adverse effects from taking it. Would like to continue. [facility] Medical History Anxiety and depression History of ADHD Uses control Dysmenorrhea Surgical History No pertinent past surgical history Family History Father Essential hypertension Mother Depression with anxiety Paternal Aunt Bipolar disorder Social History Housing: Apartment Patient Tobacco Use Status: Never used Tobacco e-Cigarette/Vaping Use: Never Used service: No Current occupational status: employed Cognitive needs: No Hearing needs: No Vision needs: Yes Questionnaire PHQ-9 Over the last 2 weeks, how often have you been bothered by any of the following problems? 1. Little interest or pleasure in doing things: not at all 2. Feeling down, depressed, or hopeless: not at all 3. Trouble falling or staying asleep, or sleeping too much: not at all 4. Feeling tired or having little energy: not at all 5. Poor appetite or overeating: not at all 6. Feeling bad about yourself - or that you are a failure or have let yourself or your family down: not at all 7. Trouble concentrating on things, such as reading the newspaper or watching television: not at all 8. Moving or speaking so slowly that other people could have noticed. Or the opposite - being so fidgety or restless that you have been moving around a lot more than usual: not at all 9. Thoughts that you would be better off or of hurting yourself in some way: not at all Total score: 0 Depression Screening Interpretation: Negative (Depression anxiety symptoms have resolved since taking escitalopram) Depression Screening Done: Yes 84099 - PHQ-9 Billing: Yes Source: Developed by Drs. Caio Hernandez, Joleen Phelps, Micheal Villareal and colleagues, with an educational sana from [employer]. Thrive Questionnaire Date Thrive assessed: 06/26/24 JONAH-7 AMB Questionnaire JONAH-7 Date JONAH - 7 assessed: 06/26/24 Feeling nervous, anxious, or on edge: 0 = Not at all Not being able to stop or control worryin = Not at all Worrying too much about different things: 0 = Not at all Trouble relaxin = Not at all Being so restless that it is hard to sit still: 0 = Not at all Becoming easily annoyed or irritable: 0 = Not at all Feeling afraid as if something awful might happen: 0 = Not at all Total JONAH-7 score (0-4 normal; 5-9 mild; 10-14 moderate; 15-21 severe): 0 Source: Developed by Drs. Caio Hernandez, Joleen Phelps, Micheal Villareal and colleagues, with an educational sana from [employer]. JONAH-7 Assessment Billing JONAH-7 Assessment Tool: JONAH-7 Assessment 64770 Review of Systems Const Denies headache(s) and Denies weakness Eyes Denies change in vision ENT Denies dizziness and Denies headache(s) Card Denies chest pain, Denies lightheadedness and Denies dyspnea Resp Denies cough and Denies dyspnea GI Denies abdominal pain, Denies change in bowel habits and Denies heartburn Musc Reports no additional complaints Neuro Denies dizziness, Denies headache(s) and Denies weakness Psych Reports no additional complaints Endo Reports no additional complaints Physical exam (Primary Care) Tobacco/Smoking Status: Tobacco use Status Tobacco use date assessed 06/26/24 07/25/24 09:38 Patient Tobacco Use Status Never used Tobacco 07/25/24 09:38 e-Cigarette/Vaping Use Never Used 07/25/24 09:38 Depression Screening Interpretation: Negative (Depression anxiety symptoms have resolved since taking escitalopram) Thrive Assessment: Date of Thrive Assessment Date Thrive assessed 06/26/24 07/25/24 09:38 Telehealth Telehealth Telehealth Platform: [employer] Location of provider rendering services: practice address Location of patient: address on file Patient Identification confirmed using: Name, : Yes Telehealth method: video Patient verbally consented to treatment: Yes Patient verbally consented to billing insurance company: Yes Patient informed of any privacy concerns related to visit: Yes Minutes spent on Phone/Video with Pt.: 15 Coding Level of Care Code Tele Est Pt Level 3 (61017) Diagnoses Anxiety and depression F41.9; F32.A Additional Codes PHQ-9 - 37076 - PHQ-9 Billing: Yes ([id number]) JONAH-7 Assessment Billing - JONAH-7 Assessment Tool: JONAH-7 Assessment 98115 ([id number]) Assessment & Plan Assessment & Plan (1) Anxiety and depression: Code(s): F41.9 - Anxiety disorder, unspecified; F32.A - Depression, unspecified Category: Medical Plan: Doing well on escitalopram 5 mg per tablet takes at night. Sleep has been better. Will continue on current dose, refill sent, will see her back for follow-up in six-months Medications: Refilled escitalopram oxalate 5 mg PO DAILY 90 tabs 3RF F32.A - Depression, unspecified, F41.9 - Anxiety disorder, unspecified
--- OUTSIDE RECORDS SUMMARY | 2024-07-25 10:37 | XMS_ITS | Encounter Summary ---
Author Organization [facility] Address [address] [place] [address] Phone Care Team Providers Care Chief Engineer Production Name Role Phone Moriah Carbajal MD Primary Care Provider [phone] Reason for Visit * Reason Comments Med Refill Encounter Details Date Type Department Care Team ([facility] st Contact Info) Description 06/03/2021 Refill [facility] [place] [address] [place] [address] Moriah Carbajal MD [address] [place] [address] Dysmenorrhea Social History Tobacco Use Types Packs/Day [...] Dysmenorrhea documented in this encounter Care Teams Chief Engineer Production Relationship Specialty Start Date End Date Moriah Carbajal MD [address] [place] [address] PCP - General Pediatrics 11/13/18 03/11/24 documented as of this encounter
--- OUTSIDE RECORDS SUMMARY | 2024-07-25 10:37 | XMS_ITS | Clinical Summary ---
Author Organization [facility] Address [address] [place] [phone] Phone Care Team Providers Care Ssn/Ssbn Weapons Equipment Operator Name Role Phone Unavailable Primary Care Provider [...] again. BMI down to 4t %ile 03/25/2019 [facility] for [place]iness, thought due to calorie restriction. Was referred to financial operations consultant. - following ED visit, has had slow [...] again. BMI down to 4t %ile 03/25/2019 [facility] for dizziness, thought due to calorie restriction. Was referred to financial operations consultant. - following ED visit, has had slow [...] adolescent medicine if weight gain does not leaf size picker. Assessment & Plan (04/25/2019 3:42 PM EST): Weight is up 1.5 lbs in 1 month, will defer on checking labs today. Follow up 4- 6 weeks. I discussed the possibility of referral to [facility] if weight gain is not adequate [...] of social anxiety which cause nausea school speech language pathologist and cause her to cancel plans with friends. Suggest short term therapy with [facility]. Will call to make intake appt ( not available for warm hand off today) Assessment & Plan (08/16/2022 9:37 AM EDT): 08/16/2022 (age 17yr): symptoms of social anxiety have improved over time. She thinks being out high school has helped. Assessment & Plan (05/02/2021 5:45 PM EST): 05/02/2021 (age 16yr): symptoms of social anxiety which cause nausea school speech language pathologist and cause her to cancel plans with [...] care: Concerta 27 mg - prescribed by [facility] as off 06/26/2014 Assessment & Plan (08/16/2022 [...] Hgb 11.0 in August, Labs done at [facility] 03/2019 show hgb of 12.6. Assessment [...] Type Department Care Team Description 05/30/2024 Refill [facility] - [address] [address] Moriah Carbajal MD Dysmenorrhea from Last 3 [...] Completed 08/16/2022, 02/25/2021 Procedures * Due to [place] [employer] law, this organization might not be sharing sensitive test results. Procedure Name Priority Date/Time Associated Diagnosis Comments CHLAMYDIA AND GONORRHEA, AMPLIFIED Routine 08/16/2022 10:37 AM EDT Encounter for screening examination for chlamydial infection from Last 3 Months or Most Recently Relevant to Health Maintenance Results * Due to [place] [employer] law, this organization might not be sharing sensitive test results. * Chlamydia and Gonorrhoea, Amplified (08/16/2022 10:37 AM EDT) Chlamydia Trachomatis, DNA Probe NEGATIVE (NEG) [facility] Comment: No Chlamydia Trachomatis RNA detected in this patient's sample ? (REFERENCE RANGE/NORMAL VALUE: NOT DETECTED) ? Note: This test uses analytical chemist- mediated amplification method to detect rRNA from C. Trachomatis URINE GC AMP PROBE NEGATIVE (NEG) [facility] Comment: No Neisseria Gonorrhoeae RNA detected in this patient's sample ? (REFERENCE RANGE/NORMAL VALUE: NOT DETECTED) ? NOTE: This test uses analytical chemist-mediated amplification method to detect rRNA from N.Gonorrhoeae. [...] without risk of sexual abuse. Consult the [facility] if [...] indicated. Testing performed or reported by [facility], a Service of [facility], [address] [place] [address] Santi Montenegro MD, Lead Installer [facility]# [id number] Urine (Urine) 08/16/2022 10: 37 AM EDT 08/17/2022 4:27 AM EDT Moriah Carbajal MD LAB MICROBIOLOGY - GENERAL OR DERABLES Final Result [facility] from Last 3 Months or Most Recently Relevant to Health Maintenance
--- OUTSIDE RECORDS SUMMARY | 2024-07-25 10:37 | XMS_ITS | Data Portability ---
Author Organization [facility] Address [address] [place] [address] Care Team Providers Care Reliner Name Role Phone [facility] [phone] Assessment No assessment recorded. Plan of Treatment Reminders Order Date Submit Date Provider Last Modified By Organization Details Last Modified Time Details Appointments None recorded. Lab rapid strep group A, throat 2022 023 [email or web address] [facility], [address] [place] [address], [phone], 3 15:59:21 streptococc us group A, culture, throat 2022 023 [facility], [address] [place] [address], [address], 3 06:08:39 urinalysis, dipstick 2022 023 [email or web address] _[facility], [address] [place] [address], [address], 3 09:13:58 test, urine 2022 023 [email or web address] [address], [address] [place] [address], [phone], 3 09:13:59 culture, urine 2022 023 [facility], [address] [place] [address], [address], 3 20:06:43 Referral None recorded. Procedures None recorded. Surgeries None recorded. Imaging None recorded. Medication Orders nitrofurant oin monohydrate /macrocryst als 100 mg capsule 2022 023 [id number], [address] [facility], [place], [address], 15:17:37 Patient TargetsNo targets recorded. Patient Instructions Encounter Date Encounter Id Patient Instructions Last Modified By Organization Details Last Modified Time 11/17/2022 [id number] You are going to be treated for [...] antibiotic was prescribed. Thank you for using [facility] - please don't hesistate to call our office if you have any questions or concerns. [email or web address] Not available 11/17/2022 09:13:42 11/28/2022 [id number] sore throat: car e instructions [email or web address] Not available 11/28/2022 15:59:19 Reason for Referral None Reported. Results Created Date Observation Date Name Description Value Unit Range Abnormal Flag Note LastModifiedBy Organization Detail LastModifiedTime 11/18/1911/21/2022 URINE CULTU SHREYA MILES urine culture, routine FINAL abnormal Not Available [facility] ([facility]) [address] [facility], [place], [address], 11/21/2022 12:06:45 11/18/1911/21/2022 URINE CULTU RE, ROUTI [...] ng units per mL Not Available [facility] ([facility]) [address] [facility], [place], [address], 11/21/2022 12:06:45 11/18/19 23 11/21/2022 URINE CULTU [...] thopr im/Teresa lfa S Not Available [facility] ([facility]) [address] [facility], [place], [address], 11/21/2022 12:06:45 11/18/19 23 11/17/2022 pregn jamila test, urine Unknown Analyte Normal = Negati ve Not Available [address] [address] [facility] [address] [place] [address], [place], [address], 11/17/2022 08:51:36 11/18/19 23 11/17/2022 pregn jamila test, urine Unknown Analyte negati ve Not Available jose armando chavez [address], [place], [address], 11/17/2022 08:51:36 11/18/19 23 11/17/2022 urina lysis , dipst ick Unknown Analyte Normal = light yellow Not Available jose armando chavez [address], [place], [address], 11/17/2022 08:51:28 11/18/19 23 11/17/2022 urina lysis , dipst ick Unknown Analyte Yellow Not Available percy [address], [place], [address], 11/17/2022 08:51:28 11/18/19 23 11/17/2022 urina lysis , dipst ick Unknown Analyte Cloudy Not Available percy [address], [place], [address], 11/17/2022 08:51:28 11/18/1911/17/2022 urina lysis , dipst ick Unknown Analyte Normal = clear Not Available jose armando chavez [address], [place], [address], 11/17/2022 08:51:28 11/18/19 23 11/17/2022 urina lysis , dipst ick Unknown Analyte Normal = negati ve Not Available jose armando chavez [address], [place], [address], 11/17/2022 08:51:28 11/18/19 23 11/17/2022 urina lysis , dipst ick Unknown Analyte Negati ve Not Available jose armando chavez [address], [place], [address], 11/17/2022 08:51:28 11/18/19 23 11/17/2022 urina lysis , dipst ick Unknown Analyte Normal = Negati ve Not Available jose armando chavez [address], [place], [address], 11/17/2022 08:51:28 11/18/19 23 11/17/2022 urina lysis , dipst ick Unknown Analyte Negati ve Not Available [address] ch[address], [place], [address], 11/17/2022 08:51:28 11/18/1911/17/2022 urina lysis , dipst ick Unknown Analyte Normal = Negati ve Not Available 20[address] armando chavez [address], [place], [address], 11/17/2022 08:51:28 11/18/1911/17/2022 urina lysis , dipst ick Unknown Analyte 40 mg/dL Not Available jose armando chavez [address], [place], [address], 11/17/2022 08:51:28 11/18/19 23 11/17/2022 urina lysis , dipst ick Unknown Analyte Normal = 1.010, 1.015, 1.020 Not Available jose armando chavez [address], [place], [address], 11/17/2022 08:51:28 11/18/19 23 11/17/2022 urina lysis , dipst ick Unknown Analyte 1.030 Not Available [address] [place], [place] [address]keanu [address], [place], [address], 11/17/2022 08:51:28 11/18/19 23 11/17/2022 urina lysis , dipst ick Unknown Analyte Normal = Negati ve Not Available jose armando chavez [address], [place], [address], 11/17/2022 08:51:28 11/18/1911/17/2022 urina lysis , dipst ick Unknown Analyte Large Not Available [facility] [address], [place], [address], 11/17/2022 08:51:28 11/18/1911/17/2022 urina lysis , dipst ick Unknown Analyte Normal = 6.5, 7.0, 7.5, 8.0 Not Available [facility] [address], [place], [address], 11/17/2022 08:51:28 11/18/1911/17/2022 urina lysis , dipst ick Unknown Analyte 6.5 Not Available [address], [place], [address], 11/17/2022 08:51:28 11/18/1911/17/2022 urina lysis , dipst ick Unknown Analyte Normal = Negati ve Not Available jose armando chavez [address], [place], [address], 11/17/2022 08:51:28 11/18/1911/17/2022 urina lysis , dipst ick Unknown Analyte 300 mg/dL Not Available jose armando chavez [address], [place], [address], 11/17/2022 08:51:28 11/18/1911/17/2022 urina lysis , dipst ick Unknown Analyte Normal = 0.2, 1.0 Not Available [facility] [address], [place], [address], 11/17/2022 08:51:28 11/18/19 23 11/17/2022 urina lysis , dipst ick Unknown Analyte 2.0 E.U./d L Not Available 2099jose armando [address], [place], [address], 11/17/2022 08:51:28 11/18/19 23 11/17/2022 urina lysis , dipst ick Unknown Analyte Normal = Negati ve Not Available [address] [place] [address], [place], [address], 11/17/2022 08:51:28 11/18/19 23 11/17/2022 urina lysis , dipst ick Unknown Analyte Positi ve Not Available [address] [place] [address], [place], [address], 11/17/2022 08:51:28 11/18/19 23 11/17/2022 urina lysis , dipst ick Unknown Analyte Normal = Negati ve Not Available [address] [place] [address], [place], [address], 11/17/2022 08:51:28 11/18/19 23 11/17/2022 urina lysis , dipst ick Unknown Analyte Small Not Available [address] [place] [address], [place], [address], 11/17/2022 08:51:28 11/29/19 23 12/01/2022 BETA STREP GP A CULTU RE beta strep gp A culture NEGATI VE Refer ence Range : Negat alicja Not Available [facility] ([facility]) [address] [facility], [place], [address], 12/01/2022 06:08:39 11/29/19 23 11/28/2022 rapid strep group A, throa t Unknown Analyte Normal = Negati ve Not Available [address] [place] [address], [place], [address], 11/28/2022 15:17:18 11/29/19 23 11/28/2022 rapid strep group A, throa t Unknown Analyte negati ve Not Available [address] [facility] [address] [place] [address], [address], 11/28/2022 15:17:18 Result Notes None recorded. Problems [...] 3 154.94 cm 17.6 kg/m2 4 % 66391.0 9 g 18 /min 4 100 % 100 % 80 /min 98.2 [degF] 115 mm[Hg] 82 mm[Hg] Siena Jimenez PA - [facility] 3 08:52:42 Date Recorded Body height Body [...] 3 154.94 cm 4 % 17.6 kg/m2 11067.0 9 g 8 18 /min 100 % 100 % 73 /min 98.6 [degF] 115 mm[Hg] 76 mm[Hg] Serena Nesbitt PA - [facility] 3 15:19:21 Social History Question Answer [...] 08:51:01 meningococcal B, recombinant 1 completed Siena Randolph null, PA - [facility] 11/17/2022 08:51:01 HPV9 8 completed Siena Tony null, PA - [facility] 11/17/2022 08:51:01 HPV9 9 completed Siena Randolph null, PA - [facility] 11/17/2022 08:51:01 IPV 6 completed Siena Tony null, PA - [facility] 11/17/2022 08:51:01 COVID-19, mRNA, LNP-S, PF, 30 mcg/0.3 mL dose 1 completed Siena Randolph null, PA - [facility] 11/17/2022 08:51:01 COVID-19, mRNA, LNP-S, PF, 30 mcg/0.3 mL dose 1 completed Siena Randolph null, PA - [facility] 11/17/2022 08:51:01 COVID-19, mRNA, LNP-S, PF, 30 mcg/0.3 mL dose, la-sucrose 2 completed Siena Randolph null, PA - [facility] 11/17/2022 08:51:01 COVID-19, mRNA, LNP-S, bivalent, PF, 30 mcg/0.3 mL dose 3 completed Siena Tony null, PA - [facility] 11/17/2022 08:51:01 meningococcal MCV4P 0 completed Siena Randolph null, PA - [facility] 11/17/2022 08:51:01 Influenza, split virus, quadrivalent, PF 1 completed Siena Randolph null, PA - [facility] 11/17/2022 08:51:01 Influenza, split virus, quadrivalent, PF 3 completed Siena Randolph null, PA - [facility] 11/17/2022 08:51:01 Influenza, split virus, quadrivalent, PF 8 completed Siena Tony null, PA - [facility] 11/17/2022 08:51:01 Influenza, split virus, quadrivalent, PF 1 completed Siena Randolph null, PA - [facility] 11/17/2022 08:51:01 Influenza, split virus, quadrivalent, PF 6 completed Siena Tony null, PA - [facility] 11/17/2022 08:51:01 Past Encounters Encounter ID Performer Location Encounter Start Date Encounter Closed Date Diagnosis/Indication Diagnosis SNOMED-CT Code Diagnosis ICD10 Code Diagnosis Note [id number] [address] [address] 05/29/2019 11:24:22 05/29/2019 12:53:05 [id number] [address] [address] 06/30/2021 16:17:26 06/30/2021 17:36:13 [id number] [facility] [address] [place] [address] 11/17/2022 08:09:44 11/17/2022 09:28:39 Dysuria 20097766 R30.0 Urine dip does suggest UTI.Pregna ncy Test was negative. [id number] Emiliano Og MD [address] [address] [place] [address] 11/28/2022 13:46:21 11/28/2022 16:15:35 Acute pharyngitis 354847377 J02.9 Please follow up with PCP or [...] Member ID Guarantor Name 05/29/2019 2 [employer] [id number] Elmer Boothe [id number] Padmini Brooks 06/30/2021 1 [facility] [id number] Padmini Brooks [id number] Willowsmargarita Brooks 06/30/2021 2 [employer] [id number] Elmer Boothe [id number] Padmini Brooks 11/17/2022 1 [facility] [id number] Padmini Brooks [id number] Willowsmargarita Brooks 11/17/2022 2 [employer] [id number] Elmer Boothe [id number] Padmini Brooks 11/28/2022 1 [facility] [id number] Padmini Brooks [id number] Padmini Brooks Notes Date Note Type [...] now. REMINGTON GARCIA [address] [place], [address], [employer] 11/17/2022 09:18:28 3 text/html Sore throatReported bypatient.Source of patient informationInformation obtained from patient; Patient arrived at Urgent Care ambulatory Location:throat Severity:mild Quality:hurts to swallow Onset/Timin days Associated Symptoms:no sputum production; no shortness of breath; no wheezing; no sinus pain; no vomiting; no nausea; No hoarseness;coughing Context:no sick contacts; no foreign travel; non-smoker Emiliano Og MD [address] [place], [address], [employer] 11/28/2022 18:48:51 OBGyn Episode No OBEpisode recorded.
== END 2024-07-25 12:59 | disposition home or self-care (01) ==
LOC: HO.HMCC 09:39
PROVIDERS: PCP Internal Medicine; Visit Provider Internal Medicine
DX: F41.9 Anxiety disorder, unspecified (principal); F32.A Depression, unspecified

== ENCOUNTER → 2024-07-25 09:39 | Outpatient (BNVA) | payer OTHER, SELFPAY | PROVIDERS: PCP Internal Medicine; Visit Provider Internal Medicine | DX: F41.9 Anxiety disorder, unspecified (principal); F32.A Depression, unspecified; Z79.899 Other long term (current) drug therapy | CPT/HCPCS: 96127 ==

== ENCOUNTER 2025-01-27 09:22 | Outpatient (AMB) | payer OTHER, SELFPAY ==
[2025-01-27 09:43] VITALS: BP 90/62; PULSE 75; RESP 15; TEMP 36.8; O2SAT 99; BMI 19.1
--- NOTE | 2025-01-27 09:43 | A.OFFPC_ITS ---
Vital Signs 01/27/25 09:43 Height 5 ft 1 in Weight 101 lb BMI 19.1 BP 90/62 Blood Pressure Location Rt brachial Position Sitting Respiration 15 Pulse 75 Pulse Source Pulse Oximeter Temp 98.2 F Temp Source Oral Pulse Oximetry (%) 99 Oxygen Delivery Method Room Air Intake Visit Reasons: follow up anxiety/depression/meds Intake Note: Pt is here today to f/u anxiety and depression meds Allergies No Known Allergies Allergy (Verified 01/27/25 10:17) Medication List - Last Reconciled 01/27/25 by Yasmeen Millard MD escitalopram oxalate 5 mg PO DAILY levonorgestrel-ethinyl estrad 0.1-20 mg-mcg (Vienva) 1 tab PO DAILY Tobacco use date assessed: 01/27/25 Dental Screening Dental Screen Date: 01/27/25 Did you have a dental visit in the last 12 months?: Yes Did you have a dental problem in the last 6 months where you did not have access to dental care?: No Was dental information given to patient?: Patient has dentist HPI follow up anxiety/depression/meds HPI Details 19-year-old lady here today for follow-u p on her anxiety depression. Was placed on escitalopram 5 mg earlier this year which she states has been helping a lot. She takes it at night, has been sleeping well, mood has been stable, and has had infra anxiety attacks, which has been well managed with behavioral techniques [facility] Medical History Anxiety and depression History of ADHD Uses control Dysmenorrhea Surgical History No pertinent past surgical history Family History Father Essential hypertension Mother Depression with anxiety Paternal Aunt Bipolar disorder Social History Housing: Apartment Patient Tobacco Use Status: Never used Tobacco e-Cigarette/Vaping Use: Never Used service: No Current occupational status: employed Cognitive needs: No Hearing needs: No Vision needs: Yes Questionnaire PHQ-9 Over the last 2 weeks, how often have you been bothered by any of the following problems? 1. Little interest or pleasure in doing things: not at all 2. Feeling down, depressed, or hopeless: not at all 3. Trouble falling or staying asleep, or sleeping too much: several days 4. Feeling tired or having little energy: not at all 5. Poor appetite or overeating: several days 6. Feeling bad about yourself - or that you are a failure or have let yourself or your family down: not at all 7. Trouble concentrating on things, such as reading the newspaper or watching television: not at all 8. Moving or speaking so slowly that other people could have noticed. Or the opposite - being so fidgety or restless that you have been moving around a lot more than usual: not at all 9. Thoughts that you would be better off or of hurting yourself in some way: not at all Total score: 2 Depression Screening Interpretation: Positive (Better controlled on escitalopram 5 mg daily.) Depression Screening Follow-up: Existing condition, In treatment and Follow-up Visit Requested Depression Screening Done: Yes 51337 - PHQ-9 Billing: Yes Source: Developed by Drs. Caio Hernandez, Joleen Phelps, Micheal Villareal and colleagues, with an educational sana from [employer]. Thrive Questionnaire Date Thrive assessed: 06/26/24 I am a: Patient What is your living situation today?: I have a steady place to live Within the past 12 months, did the food you bought not last and you didn't have the money to get more?: Never true Within the past 12 months, did you worry whether your food would run out before you got money to buy more?: Never true Do you have trouble paying for medicines?: No Do you have trouble getting transportation to medical appointments?: No Do you have trouble paying your heating and electricity bill?: No Do you have trouble taking care of your child, family member or friend?: No Do you have trouble with day-to-day activities such as bathing, preparing meals, shopping, managing finances, etc.?: No Are you currently unemployed and looking for a job?: No Are you interested in more education?: No Please select the resources that you would like help with: None Currently or been in a relationship where the following occur: No concerns reported THRIVE Score: 0 AUDIT C Alcohol Use Questionnaire (AUDIT-C) 1. How often do you have a drink containing alcohol?: Monthly or less 2. How many drinks containing alcohol do you have on a typical day when you are drinking?: 1 or 2 3. How often do you have six or more drinks on one occasion?: Never Total Score: 1 JONAH-7 AMB Questionnaire JONAH-7 Date JONAH - 7 assessed: 01/27/25 Feeling nervous, anxious, or on edge: 1 = Several days Not being able to stop or control worryin = Not at all Worrying too much about different things: 0 = Not at all Trouble relaxin = Several days Being so restless that it is hard to sit still: 0 = Not at all Becoming easily annoyed or irritable: 0 = Not at all Feeling afraid as if something awful might happen: 0 = Not at all Total JONHA-7 score (0-4 normal; 5-9 mild; 10-14 moderate; 15-21 severe): 2 Source: Developed by Drs. Caio Hernandez, Joleen Phelps, Micheal Villareal and colleagues, with an educational sana from [employer]. JONAH-7 Assessment Billing JONAH-7 Assessment Tool: JONAH-7 Assessment 11860 Review of Systems Const Denies headache(s) and Denies weakness ENT Denies dizziness and Denies headache(s) Card Denies chest pain, Denies lightheadedness and Denies dyspnea Resp Denies cough and Denies dyspnea GI Denies abdominal pain, Denies change in bowel habits and Denies heartburn Musc Reports no additional complaints Neuro Denies dizziness, Denies headache(s) and Denies weakness Psych Reports no additional complaints Endo Reports no additional complaints Physical exam (Primary Care) Vital Signs: Last Vital Signs Temp 98.2 F 01/27/25 09:43 Pulse 75 01/27/25 09:43 Resp 15 01/27/25 09:43 BP 90/62 01/27/25 09:43 Pulse Ox 99 01/27/25 09:43 Oxygen Delivery Method Room Air 01/27/25 09:43 BMI result Body Mass Index 19.1 Tobacco/Smoking Status: Tobacco use Status Tobacco use date assessed 01/27/25 01/27/25 09:51 Patient Tobacco Use Status Never used Tobacco 01/27/25 09:44 e-Cigarette/Vaping Use Never Used 01/27/25 09:44 PHQ-9: PHQ-9 Score PHQ-9: Total score 9 01/27/25 10:05 Depression Screening Interpretation: Positive (Better controlled on escitalopram 5 mg daily.) Depression Screening Follow-up: Existing condition, In treatment an d Follow-up Visit Requested Thrive Assessment: Date of Thrive Assessment Date Thrive assessed 06/26/24 01/27/25 09:44 Currently or been in a relationship where the following occur: No concerns reported Const General: no acute distress and alert Orientation/consciousness: patient oriented x3 Limitations: no limitations HENMT General nose exam: Normal external nose present Mouth: moist mucous membranes Eyes General: appearance normal, both eyes and all related structures Neck Neck: Yes full ROM, Yes no lymphadenopathy and Yes supple Cardio Rate: regular rate Rhythm: regular rhythm Heart sounds: S1 normal heart sound present and S2 normal heart sound present Skin General skin exam: no rashes or lesions noted Neuro General: patient oriented x3, gait normal, tone normal, moves all extremities, Normal light touch and pain sensation and no focal motor deficits Cranial nerves: Yes CN's II-XII intact bilaterally Cognition (Neuro): normal cognition Psych Appearance: grossly normal and well kempt Mental Status: mental status grossly normal Speech and movement: Normal speech and movement present Affect: normal affect Thought process: Normal thought process present Thought content: Normal thought content present Coding Level of Care Code Est Pt Level 4 (11363) Diagnoses Anxiety and depression F41.9; F32.A Additional Codes JONAH-7 Assessment Billing - JONAH-7 Assessment Tool: JONAH-7 Assessment 08758 ([id number]) PHQ-9 - 05439 - PHQ-9 Billing: Yes ([id number]) Assessment & Plan Assessment & Plan (1) Anxiety and depression: Code(s): F41.9 - Anxiety disorder, unspecified; F32.A - Depression, unspecified Category: Medical Plan: Symptoms controlled on escitalopram 5 mg taken once a day. Refill sent. Will see her back for follow-up in June 2025 on her scheduled physical exam. Medications: Refilled escitalopram oxalate 5 mg PO DAILY 90 tabs 3RF F32.A - Depression, unspecified, F41.9 - Anxiety disorder, unspecified
--- OUTSIDE RECORDS SUMMARY | 2025-01-27 11:53 | XMS_ITS | Encounter Summary ---
Author Organization [facility] Address [address] [place] [id number] Phone Care Team Providers Care Scalemaker Name Role Phone Moriah Carbajal MD Primary Care Provider [phone] Reason for Visit * Reason Comments Med Refill Encounter Details Date Type Department Care Team ([facility] st Contact Info) Description 06/03/2021 Refill [facility] [place] [address] [place] [address] Moriah Carbajal MD [address] [place] [address] Dysmenorrhea Social History Tobacco Use Types Packs/Day [...] Dysmenorrhea documented in this encounter Care Teams Scalemaker Relationship Specialty Start Date End Date Moriah Carbajal MD [address] [place] [id number] PCP - General Pediatrics 11/13/18 03/11/24 documented as of this encounter
--- OUTSIDE RECORDS SUMMARY | 2025-01-27 11:53 | XMS_ITS | Clinical Summary ---
Author Organization [facility] Address [address] [place] [address] Phone Care Team Providers Care Frame Bender Name Role Phone Unavailable Primary Care Provider [...] again. BMI down to 4t %ile 03/25/2019 [facility] for dizziness, thought due to calorie restriction. Was referred to in shop service technician. - following ED visit, has had slow [...] again. BMI down to 4t %ile 03/25/2019 [facility] for dizziness, thought due to calorie restriction. Was referred to in shop service technician. - following ED visit, has had slow [...] adolescent medicine if weight gain does not lemon picker. Assessment & Plan (04/25/2019 3:42 PM EST): Weight is up 1.5 lbs in 1 month, will defer on checking labs today. Follow up 4- 6 weeks. 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 Suggest short term therapy with [facility]. Will call to make intake appt ( not available for warm hand off today) Assessment & Plan (08/16/2022 9:37 AM EDT): 08/16/2022 (age 17yr): symptoms of social anxiety have improved over time. She thinks being out high school has helped. 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 Assessment [...] much better, using ceraVe. Not taking doxy. Immunizations Immunization Administration Dates Next Due COVID-19 [...] 96 08/16/2022 8:59 AM EDT Temperature 36.2 C (97.2 F) 12/07/2019 11:32 AM EDT Respiratory Rate - - Oxygen Saturation - - Inhaled Oxygen Concentration - - Weight 43.5 kg (96 lb) 08/16/2022 8:59 AM EDT Height 157.3 cm (5' 1.91 ) 08/16/2022 8:59 AM ED T Body Mass Index 17.61 08/16/2022 8:59 AM EDT Plan of Treatment Health Maintenance Due Date Last Done Comments DTaP,Tdap,and Td Vaccines (7 - Td or Tdap) 06/26/2024 06/26/2014, 02/23/2012, 05/16/2004, Additional history exists Influenza Vaccines (#1) 2024 08/17/19, 02/25/2021, 07/06/2020, Additional history exists COVID-19 Vaccine (2024-2 6 season) 2025 08/16/2022, 06/19/2021, 10/28/2020, Additional history exists Hepatitis B Vaccines Completed [...] Completed 08/16/2022, 02/25/2021 Procedures * Due to [facility] law, this organization might not be sharing sensitive test results. Procedure Name Priority Date/Time Associated Diagnosis Comments CHLAMYDIA AND GONORRHEA, AMPLIFIED Routine 08/16/2022 10:37 AM EDT Encounter for screening examination for chlamydial infection from Last 3 Months or Most Recently Relevant to Health Maintenance Results * Due to [place] [employer] law, this organization might not be sharing sensitive test results. * Chlamydia and Gonorrhoea, Amplified (08/16/2022 10:37 AM EDT) Chlamydia Trachomatis, DNA Probe NEGATIVE (NEG) [facility] Comment: No Chlamydia Trachomatis RNA detected in this patient's sample (REFERENCE RANGE/NORMAL VALUE: NOT DETECTED) Note: This test uses station air traffic control specialist- mediated amplification method to detect rRNA from C. Trachomatis URINE GC AMP PROBE NEGATIVE (NEG) [facility] Comment: No Neisseria Gonorrhoeae RNA detected in this patient's sample (REFERENCE RANGE/NORMAL VALUE: NOT DETECTED) NOTE: This test uses station air traffic control specialist-mediated amplification method to detect rRNA from N.Gonorrhoeae. [...] risk of sexual abuse. Consult the [facility] if needed. Contact phone number . Therapeutic failure or success cannot be determined with the Aptima Combo2 assay since nucleic acid may persist following appropriate antimicrobial therapy. The Centers for Disease Control and Prevention (CDC) recommends confirmatory retesting using culture or a different nucleic acid amplification test when positive results occur, if indicated. Testing performed or reported by [facility], a Service of [facility], [facility] [address], [place] [address] Santi Montenegro MD, Metal Storage Worker [facility]# [id number] Urine (Urine) 08/16/2022 10: 37 AM EDT 08/17/2022 4:27 AM EDT Moriah Carbajal MD LAB MICROBIOLOGY - GENERAL OR DERABLES Final Result [facility] from Last 3 Months or Most Recently Relevant to Health Maintenance
== END 2025-01-27 10:29 | disposition home or self-care (01) ==
LOC: HO.HMCC 09:23
PROVIDERS: PCP Internal Medicine; Visit Provider Internal Medicine
DX: F41.9 Anxiety disorder, unspecified (principal); F32.A Depression, unspecified

== ENCOUNTER → 2025-01-27 09:22 | Outpatient (BNVA) | payer OTHER, SELFPAY | PROVIDERS: PCP Internal Medicine; Visit Provider Internal Medicine | DX: F41.9 Anxiety disorder, unspecified (principal); F32.A Depression, unspecified | CPT/HCPCS: 96127 ==

== ENCOUNTER 2025-04-27 18:00 | Emergency (ER) | payer OTHER, SELFPAY ==
--- NOTE | ~2025-04-27 | XR_ITS ---
CLINICAL HISTORY: injury, pain, specifically over index finger 3 views right hand Comparison: None provided Findings: There is a questionable subtle nondisplaced fracture in the lateral aspect of the base of the index finger proximal phalanx only seen on the PA view. Joint spaces and joint alignment are normal. There is no radiopaque foreign body. Impression: Questionable subtle nondisplaced fracture in the lateral aspect of the base of the index finger proximal phalanx. Correlate with location of pain and tenderness. This document has been electronically signed by: Manuel Hylton MD on 04/27/2025 21:24:04
[2025-04-27 18:25] VITALS: BP 119/71; PULSE 77; RESP 16; TEMP 36.6; O2SAT 98; BMI 19.0
--- NOTE | 2025-04-27 18:26 | ED_ITS ---
HPI - General Adult General Chief complaint: Extremity Injury, Upper Stated complaint: Workers Comp RO Fracture Time Seen by Provider: 04/27/25 19:08 Source: patient Limitations: no limitations History of Present Illness HPI narrative: 20-year-old female, right-hand dominant, presents for evaluation of injury to her right 2nd digit. 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 Patient states the dog lunged forward and her finger accidentally hit the adjuvant door. She reports pain at that time. She has had decreased range of motion since then. She denies any previous injury. She did not try any medications for this. No paresthesias or paralysis. She is otherwise feeling well Related Data Home Medications ?Medication ?Instructions ?Recorded ?Confirmed levonorgestrel-ethinyl estradiol 1 tab PO DAILY 0.1 mg-20 mcg tablet (Vienva) Previous Rx's ?Medication ?Instructions ?Recorded escitalopram oxalate 5 mg tablet 5 mg PO DAILY #90 tab s 01/27/25 Allergies Allergy/AdvReac Type Severity Reaction Status Date / Time No Known Allergies Allergy Verified 04/27/25 18:28 Review of Systems Review of Systems: Yes all other systems are reviewed and are negative Musculoskeletal: Musculoskeletal: Reports arthralgias PMFSH Past Medical History Medical History Anxiety and depression History of ADHD Uses control Dysmenorrhea Surgical History No pertinent past surgical history Family History Family History Father Essential hypertension Mother Depression with anxiety Paternal Aunt Bipolar disorder Social History Social History Housing: Apartment Patient Tobacco Use Status: Never used Tobacco e-Cigarette/Vaping Use: Never Used service: No Current occupational status: employed Cognitive needs: No Hearing needs: No Vision needs: Yes Physical Exam ED Vital Signs: Vital Signs - 24 hr 04/27/25 18:25 Temperature 97.9 F Pulse Rate 77 Respiratory Rate 16 Blood Pressure 119/71 Pulse Oximetry 98 Oxygen Delivery Method Room Air BMI result Body Mass Index 19.0 Const General: alert and awake Back/Spine/Pelvis Other: Rolling Machine Operator is 5/5 bilaterally. Full range of motion of all joints. Capillary refills less than 2 seconds. There is mild tenderness to the DIP region of the right, 2nd digit. Flexion is intact. Extension is slightly limited against resistance. Pronation and supinate is intact. Radial pulses are +2 and equal bilaterally Course Course Course Narrative: Rapid medical examination performed in triage by Lani Love PA-C: Patient is a 20 year old female presenting to the emergency department with right index finger pain. Patient states that she was discharging a great guerita from her work when she slammed her right index finger and now cannot straighten it. Detailed physical exam and review of systems are deferred to the national park ranger. Imaging ordered. Patient placed back in the waiting room pending room availability and results. Medical Decision Making Medical Decision Making MDM Narrative: 20-year-old female with right 2nd digit finger injury, consistent with ligamentous injury. Preliminary reading of x-ray does not demonstrate fracture. Patient's fingers have been amanda taped for comfort. Orthopedic referral has been provided. Reviewed all discharge instructions. No further questions at this time. Differential Diagnosis Differential Diagnoses: The differential diagnosis associated with the presentation includes Fracture Ligamentous injury Dislocation Contusion Sprain Independent Interpretation I performed an independent interpretation of an: Plain X-Ray (No acute process, no fracture right 2nd digit) Discharge Plan Discharge Clinical Impression: Finger sprain Patient Disposition: Home, Self-Care Instructions: Finger Sprain (ED) Additional Instructions: Rest. Ice. Avoid strenuous activity. Amanda tape as directed. Preliminary reading of your x-ray does not show any broken bones. You may have injury to one of your tendons in your finger. Follow up with orthopedic referral. Call to schedule follow up appointment. Tylenol or ibuprofen as directed for pain. Take with food. Follow-up with your primary care provider. Call this week to schedule a follow- up appointment. Return to the emergency department if you have any worsening of symptoms, or any concerns. Get well soon! Prescriptions: No Action levonorgestrel-ethinyl estrad [Vienva] 0.1-20 mg-mcg tablet 1 tab PO DAILY escitalopram oxalate 5 mg tablet 5 mg PO DAILY Qty: 90 3RF Referrals: [facility] [place] Orthopedic Surgeons [Provider Group] Referral Note: right 2nd digit tendon injury Stand Alone Forms: Work/School Release Print Language: Venezuelan
--- OUTSIDE RECORDS SUMMARY | 2025-04-27 22:49 | XMS_ITS | Encounter Summary ---
Author Organization [facility] Address [address] [place] [phone] Phone Care Team Providers Care Bookie Name Role Phone Moriah Carbajal MD Primary Care Provider [phone] Reason for Visit * Reason Comments Med Refill Encounter Details Date Type Department Care Team ([facility] st Contact Info) Description 06/03/2021 Refill [facility] [place] [address] [place] [address] Moriah Carbajal MD [address] [place] [address] Dysmenorrhea Social History Tobacco Use Types Packs/Day [...] Dysmenorrhea documented in this encounter Care Teams Bookie Relationship Specialty Start Date End Date Moriah Carbajal MD [address] [place] [id number] PCP - General Pediatrics 11/13/18 03/11/24 documented as of this encounter
--- OUTSIDE RECORDS SUMMARY | 2025-04-27 22:49 | XMS_ITS | Data Portability ---
Author Organization [facility] [address] Address [address] [place] [address] Care Team Providers Care Military Nurse Name Role Phone [facility] Family Medicine Assessment No assessment recorded. Plan of Treatment Reminders Order Date Submit Date Provider Last Modified By Organization Details Last Modified Time Details Appointments None recorded. Lab rapid strep group A, throat 2022 023 [email or web address] _[facility], [address] [place] [address], [id number], 3 15:59:21 streptococc us group A, culture, throat [address] [facility], [address] [place] [address], [address], 3 06:08:39 urinalysis, dipstick 2022 023 [email or web address] _[facility], [address] [place] [address], [address], 3 09:13:58 test, urine 2022 023 [email or web address] _[facility], [address] [place] [address], [phone], 3 09:13:59 culture, urine [address] [facility], [address] [place] [address], [address], 3 20:06:43 Referral None recorded. Procedures None recorded. Surgeries None recorded. Imaging None recorded. Medication Orders nitrofurant oin monohydrate /macrocryst als 100 mg capsule 2022 023 [facility] #[id number], [address] [facility], [place], [address], 3 15:17:37 Patient TargetsNo targets recorded. Patient Instructions Encounter Date Encounter Id Patient Instructions Last Modified By Organization Details Last Modified Time 11/17/2022 [id number] You are going to be treated for [...] antibiotic was prescribed. Thank you for using [employer] - please don't hesistate to call our office if you have any questions or concerns. [email or web address] Not available 11/17/2022 09:13:42 11/28/2022 [id number] sore throat: car e instructions [email or web address] Not available 11/28/2022 15:59:19 Reason for Referral None Reported. Results Created Date Observation Date Name Description Value Unit Range Abnormal Flag Note LastModifiedBy Organization Detail LastModifiedTime 11/18/1911/21/2022 URINE CULTU RESHREYA NE urine culture, routine FINAL abnormal Not Available [facility] ([facility]) [address], [place], [address], 11/21/2022 12:06:45 11/18/1911/21/2022 URINE CULTU RE, ROUTI [...] ng units per mL Not Available [facility] ([facility]) [address], [place], [address], 11/21/2022 12:06:45 11/18/19 23 11/21/2022 URINE CULTU [...] thopr im/Teresa lfa S Not Available [facility] ([facility]) [address], [place], [address], 11/21/2022 12:06:45 11/18/19 23 11/17/2022 pregn jamila test, urine Unknown Analyte Normal = Negati ve Not Available [address], [place], [address], 11/17/2022 08:51:36 11/18/19 23 11/17/2022 pregn jamila test, urine Unknown Analyte negati ve Not Available jose armando chavez [address], [place], [address], 11/17/2022 08:51:36 11/18/19 23 11/17/2022 urina lysis , dipst ick Unknown Analyte Normal = light yellow Not Available 2099jose armando chavez [address], [place], [address], 11/17/2022 08:51:28 11/18/1911/17/2022 urina lysis , dipst ick Unknown Analyte Yellow Not Available [facility] [address], [place], [address], 11/17/2022 08:51:28 11/18/19 23 11/17/2022 urina lysis , dipst ick Unknown Analyte Cloudy Not Available [facility] [address], [place], [address], 11/17/2022 08:51:28 11/18/1911/17/2022 urina lysis , dipst ick Unknown Analyte Normal = clear Not Available jose armando chavez [address], [place], [address], 11/17/2022 08:51:28 11/18/1911/17/2022 urina lysis , dipst ick Unknown Analyte Normal = negati ve Not Available 2099jose armando chavez [address], [place], [address], 11/17/2022 08:51:28 11/18/19 23 11/17/2022 urina lysis , dipst ick Unknown Analyte Negati ve Not Available jose armando [address], [place], [address], 11/17/2022 08:51:28 11/18/19 23 11/17/2022 urina lysis , dipst ick Unknown Analyte Normal = Negati ve Not Available 2099jose armando chavez [address], [place], [address], 11/17/2022 08:51:28 11/18/19 23 11/17/2022 urina lysis , dipst ick Unknown Analyte Negati ve Not Available 2099jose armando chavez [address], [place], [address], 11/17/2022 08:51:28 11/18/1911/17/2022 urina lysis , dipst ick Unknown Analyte Normal = Negati ve Not Available 2099jose armando chavez [address], [place], [address], 11/17/2022 08:51:28 11/18/19 23 11/17/2022 urina lysis , dipst ick Unknown Analyte 40 mg/dL Not Available [facility] armando chavez [address], [place], [address], 11/17/2022 08:51:28 11/18/19 23 11/17/2022 urina lysis , dipst ick Unknown Analyte Normal = 1.010, 1.015, 1.020 Not Available jose armando chavez [address], [place], [address], 11/17/2022 08:51:28 11/18/19 23 11/17/2022 urina lysis , dipst ick Unknown Analyte 1.030 Not Available [address] [place], [place] [address]ke[facility] [address], [place], [address], 11/17/2022 08:51:28 11/18/19 23 11/17/2022 urina lysis , dipst ick Unknown Analyte Normal = Negati ve Not Available [facility] [address], [place], [address], 11/17/2022 08:51:28 11/18/1911/17/2022 urina lysis , dipst ick Unknown Analyte Large Not Available [facility] [address], [place], [address], 11/17/2022 08:51:28 11/18/1911/17/2022 urina lysis , dipst ick Unknown Analyte Normal = 6.5, 7.0, 7.5, 8.0 Not Available jose armando chavez [address], [place], [address], 11/17/2022 08:51:28 11/18/19 23 11/17/2022 urina lysis , dipst ick Unknown Analyte 6.5 Not Available [facility] [address], [place], [address], 11/17/2022 08:51:28 11/18/1911/17/2022 urina lysis , dipst ick Unknown Analyte Normal = Negati ve Not Available jose armando chavez [address], [place], [address], 11/17/2022 08:51:28 11/18/1911/17/2022 urina lysis , dipst ick Unknown Analyte 300 mg/dL Not Available jose armando chavez [address], [place], [address], 11/17/2022 08:51:28 11/18/1911/17/2022 urina lysis , dipst ick Unknown Analyte Normal = 0.2, 1.0 Not Available jose armando chavez [address], [place], [address], 11/17/2022 08:51:28 11/18/19 23 11/17/2022 urina lysis , dipst ick Unknown Analyte 2.0 E.U./d L Not Available 2099jose armando [address], [place], [address], 11/17/2022 08:51:28 11/18/19 23 11/17/2022 urina lysis , dipst ick Unknown Analyte Normal = Negati ve Not Available [address] [place] [address], [place], [address], 11/17/2022 08:51:28 11/18/19 23 11/17/2022 urina lysis , dipst ick Unknown Analyte Positi ve Not Available [address] [place] [address], [place], [address], 11/17/2022 08:51:28 11/18/19 23 11/17/2022 urina lysis , dipst ick Unknown Analyte Normal = Negati ve Not Available [address], [place], [address], 11/17/2022 08:51:28 11/18/19 23 11/17/2022 urina lysis , dipst ick Unknown Analyte Small Not Available [address] [place] [address], [place], [address], 11/17/2022 08:51:28 11/29/19 23 12/01/2022 BETA STREP GP A CULTU RE beta strep gp A culture NEGATI VE Refer ence Range : Negat alicja Not Available [facility] ([facility]) [address], [place], [address], 12/01/2022 06:08:39 11/29/19 23 11/28/2022 rapid strep group A, throa t Unknown Analyte Normal = Negati ve Not Available [address] [place] [address], [place], [address], 11/28/2022 15:17:18 11/29/19 23 11/28/2022 rapid strep group A, throa t Unknown Analyte negati ve Not Available [address] [place] [address], [place], [address], 11/28/2022 15:17:18 Result Notes None recorded. Problems No Known Problems Medical Equipment None Reported. Allergies No known drug allergies Medications Name Sig Start Date Stop Date Status Note LastModified by Organization Details LastModified Time nitrofuranto in monohydrate/ macrocrystal s 100 mg capsule Take 1 capsule twice a day by oral route for 5 days. 11/28 completed Not Available Not Available Not Available Vitals Date Recorded Body height Body mass index (BMI) Body mass index (BMI) [Percentile] Per age and sex Body weight Respiratory rate Pain severity - 0-10 verbal numeric rating [Score] - Reported Oxygen saturation Heart rate Body temperature Systolic And Diastolic Provider Name and Address Organization Details Last Updated DateTime 3 154.94 cm 17.6 kg/m2 4 % 01021.0 9 g 18 /min 4 100 % 80 /min 98.2 [degF] 115/82 mm[Hg] Siena Jimenez PA - [facility] 08:52:42 Date Recorded Body height Body mass index (BMI) [Percentile] Per age and sex Body mass index (BMI) Body weight Pain severity - 0-10 verbal numeric rating [Score] - Reported Respiratory rate Oxygen saturation Heart rate Body temperature Systolic And Diastolic Provider Name and Address Organization Details Last Updated DateTime 3 154.94 cm 4 % 17.6 kg/m2 49182.0 9 g 8 18 /min 100 % 73 /min 98.6 [degF] 115/76 mm[Hg] Serena MACEDO - [facility] 15:19:21 Social History Question Answer Notes LastModified by Organizat ion Details LastModified Time Tobacco Smoking Status Never Smoker Siena lion PA Bree [facility] 11/17/2022 08:51:15 Have You Had Direct Contact, Or Contact During Intimacy, With Monkeypox Rash, Scabs, Or Body Fluids From A Person With Monkeypox? No Information not available 11/17/2022 Have You Recently Traveled Abroad? No Information not available 11/17/2022 Sex: Unknown Functional Status Question Answer Note LastModified by Organizat ion Details LastModified Time Do you use any illicit or recreational drugs? No Information not available 11/17/2022 Do you or have you ever used any other forms of tobacco or nicotine? No Information not available 11/17/2022 What is your level of alcohol consumption? None Information not available 11/17/2022 Mental Status None recorded. Family History Relationship [...] [facility] 11/17/2022 08:51:01 HPV9 9 completed Siena Tony null, PA - [facility] 11/17/2022 08:51:01 IPV 6 completed Siena Tony null, PA - [facility] 11/17/2022 08:51:01 COVID-19, mRNA, LNP-S, PF, 30 mcg/0.3 mL dose 1 completed Siena Washburn null, PA - [facility] 11/17/2022 08:51:01 COVID-19, mRNA, LNP-S, PF, 30 mcg/0.3 mL dose 1 completed Siena Washburn null, PA - [facility] 11/17/2022 08:51:01 COVID-19, mRNA, LNP-S, PF, 30 mcg/0.3 mL dose, la-sucrose 2 completed Siena Washburn null, PA - [facility] 11/17/2022 08:51:01 COVID-19, mRNA, LNP-S, bivalent, PF, 30 mcg/0.3 mL dose 3 completed Siena Tony null, PA - [facility] 11/17/2022 08:51:01 meningococcal MCV4P 0 completed Siena Tony null, PA - [facility] 11/17/2022 08:51:01 Influenza, split virus, quadrivalent, PF 1 completed Siena Washburn null, PA - [facility] 11/17/2022 08:51:01 Influenza, split virus, quadrivalent, PF 3 completed Siena Washburn null, PA - [facility] 11/17/2022 08:51:01 Influenza, split virus, quadrivalent, PF 8 completed Siena Tony null, PA - [facility] 11/17/2022 08:51:01 Influenza, split virus, quadrivalent, PF 1 completed Siena Washburn null, PA - [facility] 11/17/2022 08:51:01 Influenza, split virus, quadrivalent, PF 6 completed Siena Washburn null, PA - [facility] 11/17/2022 08:51:01 Past Encounters Encounter ID Performer Location Encounter Start Date Encounter Closed Date Diagnosis/Indication Diagnosis SNOMED-CT Code Diagnosis ICD10 Code Diagnosis IMO Codes Diagnosis Note [id number] [facility] [address] [address] 05/29/2019 11:24:22 05/29/2019 12:53:05 [id number] [address] [place] [address] 06/30/2021 16:17:26 06/30/2021 17:36:13 [id number] [facility] [address] [place] [address] 11/17/2022 08:09:44 11/17/2022 09:28:39 Dysuria 01955373 R30.0 Urine dip does suggest UTI.Pregna ncy Test was negative. [id number] Emiliano Og MD [address] [place] [address] 11/28/2022 13:46:21 11/28/2022 16:15:35 Acute pharyngitis [id number] J02.9 Please follow up with PCP or [...] Recorded Advance Directives Directive None Recorded Payers Insurance Date Sequence Insurance Name Policy Number Policy Andersen Covered Member ID Andersen Member ID Guarantor Name 01/16/2023 1 [facility] - OPEN ACCESS PLUS - [employer] (PPO) [id number] Padmini Brooks [id number] Padmini Brooks 11/28/2022 1 [facility] [id number] Padmini Brooks [id number] Padmini Brooks 12/08/2022 2 [employer] [id number] Elmer Richardsong [id number] Padmini Brooks 01/16/2023 1 [facility] [employer] - OPEN ACCESS PLUS [id number] Padmini Brooks [id number] Padmini Brooks Notes Date Note Type Note Provider Name and Address Organization Details Recorded Time 07/07/202 3 text/html Urinary Complaint FemaleReported by PatientUrinary problemsFor uti symptoms, patient reportsblood in the urine,urgency, andurinary frequencybut reportsno pain in the flank,no fever/chills,no incontinence, andno recurrent uti. For source of patient information, patient reportsinformation obtained from patientandpatient arrived at urgent care ambulatory. For severity, patient reportsmild. For duration, patient reports3 days.The patient has never had a UTI. She [...] now. [facility] GARCIA [address] [place], [address], [employer] 11/17/2022 09:18:28 3 text/html Sore throatReported by PatientSore ThroatFor associated symptoms, patient reportscoughingbut reportsno sputum production,no shortness of breath,no wheezing,no sinus pain,no vomiting,no nausea, andno hoarseness. For source of patient information, patient reportsinformation obtained from patientandpatient arrived at urgent care ambulatory. For location, patient reportsthroat. For severity, patient reportsmild. For quality, patient reportshurts to swallow. For onset/timing, patient reports5 days. For context, patient reportsno sick contacts,no foreign travel, andnon-smoker. Emiliano Og MD [address] [place], [address], [employer] 11/28/2022 18:48:51 OBGyn Episode No OBEpisode recorded.
--- OUTSIDE RECORDS SUMMARY | 2025-04-27 22:49 | XMS_ITS | Clinical Summary ---
Author Organization [facility] Address [address] [place] [id number] Phone Care Team Providers Care Scaling Machine Operator Name Role Phone Unavailable Primary Care [...] again. BMI down to 4t %ile 03/25/2019 [facility] for dizziness, thought due to calorie restriction. Was referred to [facility]. - following ED visit, has had slow [...] again. BMI down to 4t %ile 03/25/2019 [facility] for dizziness, thought due to calorie restriction. Was referred to [facility]. 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 Assessment & Plan (04/25/2019 3:42 PM EST): Weight is up 1.5 lbs in 1 month, will defer on checking labs today. Follow up 4- 6 weeks. 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 Suggest short term therapy with [facility]. Will call to make intake appt ( not available for warm hand off today) Assessment & Plan (08/16/2022 9:37 AM EDT): 08/16/2022 (age 17yr): symptoms of social anxiety have improved over time. She thinks being out high school has helped. 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 Assessment [...] Completed 08/16/2022, 02/25/2021 Procedures * Due to [facility] law, this organization might not be sharing sensitive test results. Procedure Name Priority Date/Time Associated Diagnosis Comments CHLAMYDIA AND GONORRHEA, AMPLIFIED Routine 08/16/2022 10:37 AM EDT Encounter for screening examination for chlamydial infection from Last 3 Months or Most Recently Relevant to Health Maintenance Results * Due to [place] [employer] law, this organization might not be sharing sensitive test results. * Chlamydia and Gonorrhoea, Amplified (08/16/2022 10:37 AM EDT) Chlamydia Trachomatis, DNA Probe NEGATIVE (NEG) [facility] Comment: No Chlamydia Trachomatis RNA detected in this patient's sample (REFERENCE RANGE/NORMAL VALUE: NOT DETECTED) Note: This test uses spray drier operator- mediated amplification method to detect rRNA from C. Trachomatis URINE GC AMP PROBE NEGATIVE (NEG) [facility] Comment: No Neisseria Gonorrhoeae RNA detected in this patient's sample (REFERENCE RANGE/NORMAL VALUE: NOT DETECTED) NOTE: This test uses spray drier operator-mediated amplification method to detect rRNA from N.Gonorrhoeae. [...] without risk of sexual abuse. Consult the [facility] if needed. Contact phone number . Therapeutic failure or success cannot be determined with the Aptima Combo2 assay since nucleic acid may persist following appropriate antimicrobial therapy. The Centers for Disease Control and Prevention (CDC) recommends confirmatory retesting using culture or a different nucleic acid amplification test when positive results occur, if indicated. Testing performed or reported by [facility], a Service of [facility], [facility] [address], [place] [address] Santi Montenegro MD, Assistant Professor In Family Studies [facility]# [id number] Urine (Urine) 08/16/2022 10: 37 AM EDT 08/17/2022 4:27 AM EDT Moriah Carbajal MD LAB MICROBIOLOGY - GENERAL OR DERABLES Final Result [facility] from Last 3 Months or Most Recently Relevant to Health Maintenance
== END 2025-04-27 19:45 | disposition home or self-care (01) ==
PROVIDERS: Emergency Provider Emergency Medicine
DX: S63.610A Unspecified sprain of right index finger, initial encounter (principal); W22.09XA Striking against other stationary object, initial encounter; Y93.F9 Activity, other caregiving; Y92.538 Other ambulatory health services establishments as the place of occurrence of the external cause; Y99.0 Civilian activity done for income or pay
CPT/HCPCS: 73130; 99281; 99283

== ENCOUNTER → 2025-04-27 18:26 | Outpatient (BNV) | payer OTHER, SELFPAY | PROVIDERS: Emergency Provider Emergency Medicine; Visit Provider Radiology Diagnostic Radiology | DX: S69.91XA Unspecified injury of right wrist, hand and finger(s), initial encounter (principal) | CPT/HCPCS: 73130 ==

== ENCOUNTER 2025-05-13 11:29 | Emergency (ER) | payer OTHER, SELFPAY ==
[2025-05-13 11:56] VITALS: BP 118/66; PULSE 124; RESP 16; TEMP 37.6; O2SAT 100; BMI 17.4
--- NOTE | 2025-05-13 11:56 | ED.URI ---
HPI - URI/Sore Throat General Chief Complaint: General Medical Stated Complaint: ? flu, not eating in days, dehydration Time Seen by Provider: 05/13/25 14:15 Source: patient, RN notes reviewed and old records reviewed Mode of arrival: ambulatory History of Present Illness ED Provider: Gabby Darnell PA-C HPI Narrative: 20-year-old female with a past medical history anxiety, depression, ADHD, presenting to the ED c/o decreased PO intake x3 days, RAMIREZ, cough, congestion, nausea, sore throat, myalgias, fatigue/weakness, fever x4 days. denies abdominal pain, SOB, CP Related Data Home Medications ?Medication ?Instructions ?Recorded ?Confirmed levonorgestrel-ethinyl estradiol 1 tab PO DAILY 06/26/24 0.1 mg-20 mcg tablet (Vienva) Previous Rx's ?Medication ?Instructions ?Recorded escitalopram oxalate 5 mg tablet 5 mg PO DAILY #90 tabs 01/27/25 ondansetron 4 mg disintegrating 4 mg PO Q8H PRN nausea and 05/13/25 tablet vomiting #10 tabs Allergies Allergy/AdvReac Type Severity Reaction Status Date / Time No Known Allergies Allergy Verified 05/13/25 11:58 Review of Systems Review of Systems: Yes all other systems are reviewed and are negative Constitutional: Constitutional: Reports as per [facility] Past Medical History Attestation statement: The following information was validated with the patient. Source: old records reviewed Medical History Anxiety and depression History of ADHD Uses control Dysmenorrhea Surgical History No pertinent past surgical history Family History Family History Father Essential hypertension Mother Depression with anxiety Paternal Aunt Bipolar disorder Social History Social History Housing: Apartment Patient Tobacco Use Status: Never used Tobacco e-Cigarette/Vaping Use: Never Used Advance Directives: No Advance Directives Information Provided: Yes service: No Current occupational status: employed Cognitive needs: No Hearing needs: No Vision needs: Yes Physical Exam Vital Signs: Vital Signs: Last Vital Signs Temp 99.7 F 12/31/25 11:56 Pulse 98 05/13/25 15:27 Resp 14 05/13/25 15:14 BP 106/72 05/13/25 15:14 Pulse Ox 98 05/13/25 15:27 O2 Del Method Room Air 05/13/25 15:27 BMI result Body Mass Index 17.4 Const: General: cooperative, healthy appearing and no acute distress Orientation/consciousness: patient oriented x3 Limitations: no limitations HEENT: Head: Yes normal to inspection and Yes atraumatic Ears: hearing grossly normal bilaterally General nose exam: Normal external nose present Face and sinus: Yes normal facial exam Mouth: Normal oral and palatal mucosa present and no drooling Throat: Yes tonsils normal, Yes uvula midline, No peritonsillar mass, Yes posterior oropharynx abnormal (Mild erythema), No uvula laterally displaced and No uvular edema Eyes: General: appearance normal, both eyes and all related structures EOM: EOMs intact bilaterally Neck: Neck: Yes normal visual inspection and Yes no meningeal signs Resp: Effort & Inspection: normal respiratory effort, no respiratory distress and no stridor Auscultation: clear to auscultation bilaterally Cardio: Rate: regular rate Heart sounds: S1 normal heart sound present and S2 normal heart sound present Skin: Rashes: no rashes Wounds: no wounds Neuro: General: patient oriented x3, tone normal and no meningeal signs Cranial nerves: Yes CN's II-XII intact bilaterally Gait exam (Neuro): Normal gait present Extrem: General: Yes normal to inspection Course Course Course Narrative: This is a Rapid Medical Exam performed in triage by Gabby Darnell PA-C. Full HPI, ROS and PE to be performed by primary ED provider. 20-year-old female with a past medical history anxiety, depression, ADHD, presenting to the ED c/o decreased PO intake x3 days, RAMIREZ, cough, congestion, nausea, sore throat, myalgias, fatigue/weakness, fever x4 days. denies abdominal pain PE: + mild posterior oropharyngeal erythema. Uvula midline. Lungs CTA. Plan: Labs, SARs, rapid strep, SL Zofran 2:18 PM 05/13/2025 (Gabby Darnell PA-C): Leukopenic. Labs otherwise reassuring. Influenza a positive > on re-evaluation patient reports symptomatic improvement after sublingual Zofran given and the waiting room. Is tolerating p.o. without difficulty. Out of the window for Tamiflu. -heart rate fluctuating between 108-118. Patient tolerating p.o water. Will observe & re-check > EKG sinus tachycardia 3:28 PM 05/13/2025 (Gabby Darnell PA-C): HR 98 > pt safe for d/c at this time Results discussed with patient including worrisome signs and symptoms and strict return precautions, and when to return to the emergency department. They verbalized understanding and feel safe for discharge at this time. Medications Administered Discontinued Medications Generic Name Dose Route Start Last Admin Trade Name Freq PRN Reason Stop Dose Admin Ondansetron HCl 4 mg 05/13/25 11:57 05/13/25 12:02 Ondansetron Odt 4 Mg Tab.Rapdis TRANSLINGU 05/13/25 11:58 4 mg ONCE ONE Administration Medical Decision Making Medical Decision Making [facility] Narrative: 20-year-old female with a past medical history anxiety, depression, ADHD, presenting to the ED c/o decreased PO intake x3 days, RAMIREZ, cough, congestion, nausea, sore throat, myalgias, fatigue/weakness, fever x4 days. On exam low-grade temp, tachycardic, NAD, nontoxic appearing, uvula midline, talking in complete sentences, no respiratory distress. Concern for viral illness and dehydration. Rule out strep pharyngitis. No evidence of MUSIC PROMOTER/retropharyngeal abscess. Plan: Labs, viral testing, rapid strep Please refer to course for remaining clinical decision making, interpretation of labs/imaging results, and discussions with consultants and/or family members. Differential Diagnosis Differential Diagnoses: The differential diagnosis associated with the presentation includes As above Admission/Observation Consideration of admission/observation: Escalation of care including admission/observation considered Lab Data [facility] Lab Attestation statement: I reviewed the patient's lab results. 05/13/25 12:15 05/13/25 12:15 Labs: Lab Results 05/13/25 05/13/25 Range/Units 12:13 12:15 WBC 2.1 L (4.8-10.8) X10*3/uL RBC 4.93 (4.20-5.50) X10*6/uL Hgb 14.0 (12.0-16.0) g/dl Hct 41.1 (37.0-47.0) % MCV 83.4 (80.0-98.0) fL MCH 28.4 (27.0-33.0) pg MCHC 34.1 (31.0-35.0) g/dl RDW 12.7 (11.0-16.0) % Plt Count 146 L D (160-400) X10*3/uL MPV 9.6 (9.4-12.3) fL Immature Gran % (Auto) 0.5 H (0.0-0.4) % Neut % (Auto) 62.1 (45-73) % Lymph % (Auto) 23.8 (20-40) % [place] % (Auto) 13.1 H (2-11) % Eos % (Auto) 0.0 (0-4) % Baso % (Auto) 0.5 (0-2) % Lymph # (Auto) 0.5 L (1.2-4.9) X10*3/uL [place] # (Auto) 0.3 (0.1-1.2) X10*3/uL Eos # (Auto) 0.0 (0.0-0.4) X10*3/uL Baso # (Auto) 0.0 (0.0-0.2) X10*3/uL Abs Immat Gran (auto) 0.01 (0.00-0.03) X10*3/uL Absolute Neuts (auto) 1.3 L (2.0-8.3) x10*3/uL Absolute Nucleated RBC 0.000 (0.0-0.012) X10*3/uL Nucleated RBC % (auto) 0.0 (0.0-0.2) /100WBC Smear Tech's Comments VERIFIED Sodium 139 (135-145) mmol/L Potassium 3.4 (3.3-5.1) mmol/L Chloride 108 (96-108) mmol/L Carbon Dioxide 23 (22-29) mmol/L Anion Gap 11 L (12-20) BUN 10 (9-16) mg/dL Creatinine 0.62 (0.5-1.4) mg/dL Estim Creat Clear Calc 93.7 Estimated GFR > 60 Random Glucose 124 H (60-115) mg/dL Calcium 8.7 (8.4-10.2) mg/dL Magnesium 1.7 (1.6-2.6) mg/dL Total Bilirubin 0.1 (0.0-1.0) mg/dL Direct Bilirubin < 0.2 (0.0-0.5) mg/dL AST 28 (5-31) U/L ALT 12 (0-31) U/L Alkaline Phosphatase 48 (39-117) U/L Total Protein 6.6 (6.5-8.0) g/dL Albumin 4.0 (3.5-5.0) g/dL Influenza Type A (PCR) POSITIVE A (Negative) Influenza Type B (PCR) NEGATIVE (Negative) RSV RNA Qual (PCR) NEGATIVE (Negative) SARS-CoV-2 RNA (RT-PCR) NEGATIVE (Negative) S. pyogenes GrpA JOSEFINA Negative (Negative) Independent Interpretation I performed an independent interpretation of an: EKG (My interpretation: EKG sinus tachycardia rate of 118. QRS 68. No STEMI. ) Radiology Impression Discussion of test interpretation with radiology: I have reviewed the radiologist's reading. External Record Review External record reviewed: Inpatient record, Office record, Outpatient record, Prior outpatient labs, Prior outpatient radiology, Primary care record and Outside ED record Tests considered The following testing was considered but not selected: As above Prescription Management I considered prescription management with: Pain Medication, Antiviral and Antibiotic Chronic Conditions Patient?s care impacted by: Other Social Determinants Patient?s care significantly limited by Social Determinants of Health including: Other Social Determinant of Health Discharge Plan Discharge Clinical Impression: Influenza A Patient Disposition: Home, Self-Care Instructions: Influenza (DC) Additional Instructions: You have the flu No antibiotics are indicated at this time Make sure you are staying hydrated. Drink plenty of fluids. Rest Zofran as an antinausea medication, take as needed for nausea and vomiting. Take 15-30 minutes prior to ingesting food Alternate Tylenol and Motrin at home as needed for body aches and fever Follow-up with your doctor. If symptoms persist or worsen return to the emergency department *If you are a child & not tolerating liquid or urinating for more than 6 hours, or fevers are uncontrolled with medications at home, return to the emergency department* Prescriptions: New ondansetron 4 mg tablet,disintegrating 4 mg PO Q8H PRN (Reason: nausea and vomiting) Qty: 10 0RF No Action levonorgestrel-ethinyl estrad [Vienva] 0.1-20 mg-mcg tablet 1 tab PO DAILY escitalopram oxalate 5 mg tablet 5 mg PO DAILY Qty: 90 3RF Referrals: Yasmeen Millard MD [Primary Care Provider, Internal Medicine] - 1 week Stand Alone Forms: Work/School Release Print Language: Norwegian
[2025-05-13 12:22] LABS: Hematocrit 41.1 % (37.0-47.0); Hemoglobin 14.0 g/dl (12.0-16.0); Imm Gran Abs Auto 0.01 X10*3/uL (0.00-0.03); Imm Gran Pct Auto 0.5 % (0.0-0.4); Lymphocytes Absolute Auto 0.5 X10*3/uL (1.2-4.9); MANUAL DIFF FLAG SCAN; Mean Corpuscular HGB Conc 34.1 g/dl (31.0-35.0); Mean Corpuscular Hemoglobin 28.4 pg (27.0-33.0); Mean Corpuscular Volume 83.4 fL (80.0-98.0); NRBC Abs Auto 0.000 X10*3/uL (0.0-0.012); NRBC Pct Auto 0.0 /100WBC (0.0-0.2); Platelet Count 146 X10*3/uL (160-400); Red Blood Count 4.93 X10*6/uL (4.20-5.50); SCAN SMEAR FLAG 1
[2025-05-13 12:25] LABS: White Blood Count 2.1 X10*3/uL (4.8-10.8)
[2025-05-13 12:38] LABS: Strep A Nucleic Acid Negative (Negative)
[2025-05-13 12:39] LABS: Alanine Aminotransferase 12 U/L (0-31); Albumin Level 4.0 g/dL (3.5-5.0); Alkaline Phosphatase 48 U/L (39-117); Anion Gap 11 (12-20); Aspartate Amino Transferase 28 U/L (5-31); Blood Urea Nitrogen 10 mg/dL (9-16); Calcium 8.7 mg/dL (8.4-10.2); Carbon Dioxide 23 mmol/L (22-29); Chloride 108 mmol/L (96-108); Creatinine Clr Calc Pharmacy 93.7; Estimated Glomerular Filt Rate > 60; Magnesium 1.7 mg/dL (1.6-2.6); Potassium 3.4 mmol/L (3.3-5.1); Sodium 139 mmol/L (135-145); Total Protein 6.6 g/dL (6.5-8.0)
[2025-05-13 13:04] LABS: Resp Syncy Virus RNA Qual PCR NEGATIVE (Negative); SARS COV2 PCR INHOUSE NEGATIVE (Negative)
--- NOTE | 2025-05-13 14:45 | ECG_ITS ---
Test Reason : TACHY Blood Pressure : */* mmHG Vent. Rate : 118 BPM Atrial Rate : 118 BPM P-R Int : 134 ms QRS Dur : 68 ms QT Int : 320 ms P-R-T Axes : 67 87 3 degrees QTcB Int : 448 ms Sinus tachycardia Cannot rule out Anterior infarct , age undetermined , could be related to body habitus and lead placement Abnormal ECG When compared with ECG of 01-Apr-2018 13:32, decrease in V3 positive polarity Referred By: Gabby Darnell Electronically Signed By: COOPER TOTH
[2025-05-13 15:14] VITALS: BP 106/72; PULSE 111; RESP 14; O2SAT 96
[2025-05-13 15:27] VITALS: PULSE 98; O2SAT 98
[2025-05-13 15:33] VITALS: TEMP 37.2
--- OUTSIDE RECORDS SUMMARY | 2025-05-13 15:33 | XMS_ITS | Clinical Summary ---
Author Organization [facility] Address [address] [place] [phone] Phone Care Team Providers Care Director Trading Name Role Phone Unavailable Primary Care Provider [...] again. BMI down to 4t %ile 03/25/2019 [facility] for [place]iness, thought due to calorie restriction. Was referred to production coordinator. - following ED visit, has had slow [...] again. BMI down to 4t %ile 03/25/2019 [facility] for dizziness, thought due to calorie restriction. Was referred to production coordinator. 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 Assessment & Plan (04/25/2019 3:42 PM EST): Weight is up 1.5 lbs in 1 month, will defer on checking labs today. Follow up 4- 6 weeks. 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 Suggest short term therapy with [facility]. Will call to make intake appt ( not available for warm hand off today) Assessment & Plan (08/16/2022 9:37 AM EDT): 08/16/2022 (age 17yr): symptoms of social anxiety have improved over time. She thinks being out high school has helped. 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 Assessment [...] Completed 08/16/2022, 02/25/2021 Procedures * Due to [facility] law, this organization might not be sharing sensitive test results. Procedure Name Priority Date/Time Associated Diagnosis Comments CHLAMYDIA AND GONORRHEA, AMPLIFIED Routine 08/16/2022 10:37 AM EDT Encounter for screening examination for chlamydial infection from Last 3 Months or Most Recently Relevant to Health Maintenance Results * Due to [place] [employer] law, this organization might not be sharing sensitive test results. * Chlamydia and Gonorrhoea, Amplified (08/16/2022 10:37 AM EDT) Chlamydia Trachomatis, DNA Probe NEGATIVE (NEG) [facility] Comment: No Chlamydia Trachomatis RNA detected in this patient's sample (REFERENCE RANGE/NORMAL VALUE: NOT DETECTED) Note: This test uses psychologist clinical- mediated amplification method to detect rRNA from C. Trachomatis URINE GC AMP PROBE NEGATIVE (NEG) [facility] Comment: No Neisseria Gonorrhoeae RNA detected in this patient's sample (REFERENCE RANGE/NORMAL VALUE: NOT DETECTED) NOTE: This test uses psychologist clinical-mediated amplification method to detect rRNA from N.Gonorrhoeae. [...] without risk of sexual abuse. Consult the [facility] if needed. Contact phone number . Therapeutic failure or success cannot be determined with the Aptima Combo2 assay since nucleic acid may persist following appropriate antimicrobial therapy. The Centers for Disease Control and Prevention (CDC) recommends confirmatory retesting using culture or a different nucleic acid amplification test when positive results occur, if indicated. Testing performed or reported by [facility], a Service of [facility], [facility] [address], [place] [address] Santi Montenegro MD, Hairpiece Stylist [facility]# [id number] Urine (Urine) 08/16/2022 10: 37 AM EDT 08/17/2022 4:27 AM EDT Moriah Carbajal MD LAB MICROBIOLOGY - GENERAL OR DERABLES Final Result [facility] from Last 3 Months or Most Recently Relevant to Health Maintenance
--- OUTSIDE RECORDS SUMMARY | 2025-05-13 15:33 | XMS_ITS | Encounter Summary ---
Author Organization [facility] Address [address] [place] [phone] Phone Care Team Providers Care Minibus Driver Name Role Phone Moriah Carbajal MD Primary Care Provider [phone] Reason for Visit * Reason Comments Med Refill Encounter Details Date Type Department Care Team ([facility] st Contact Info) Description 06/03/2021 Refill [facility] [place] [address] [place] [address] Moriah Carbajal MD [address] [place] [address] Dysmenorrhea Social History Tobacco Use Types Packs/Day [...] Dysmenorrhea documented in this encounter Care Teams Minibus Driver Relationship Specialty Start Date End Date Moriah Carbajal MD [address] [place] [id number] PCP - General Pediatrics 11/13/18 03/11/24 documented as of this encounter
--- OUTSIDE RECORDS SUMMARY | 2025-05-13 15:33 | XMS_ITS | Data Portability ---
Author Organization [facility] [address] Address [address] [place] [address] Care Team Providers Care Industrial Analyst Name Role Phone [facility] Family Medicine [phone] Assessment No assessment recorded. Plan of Treatment Reminders Order Date Submit Date Provider Last Modified By Organization Details Last Modified Time Details Appointments None recorded. Lab rapid strep group A, throat 2022 023 [email or web address] _[facility], [address] [place] [address], [id number], 3 15:59:21 streptococc us group A, culture, throat 2022 023 [facility], [address] [place] [address], [id number], 3 06:08:39 urinalysis, dipstick 2022 023 [email or web address] _[facility], [address] [place] [address], [phone], 3 09:13:58 test, urine 2022 023 [email or web address] _[facility], [address] [place] [address], [phone], 3 09:13:59 culture, urine 2022 023 [facility], [address] [place] [address], [address], 3 20:06:43 Referral None recorded. Procedures None recorded. Surgeries None recorded. Imaging None recorded. Medication Orders nitrofurant oin monohydrate /macrocryst als 100 mg capsule 2022 023 [facility][id number], [address] [facility], [place], [address], 3 15:17:37 Patient TargetsNo targets recorded. Patient Instructions Encounter Date Encounter Id Patient Instructions Last Modified By Organization Details Last Modified Time 11/17/2022 [id number] You are going to be treated for [...] antibiotic was prescribed. Thank you for using [facility] - please don't hesistate to call our office if you have any questions or concerns. [email or web address] Not available 11/17/2022 09:13:42 11/28/2022 [id number] sore throat: car e instructions [email or web address] Not available 11/28/2022 15:59:19 Reason for Referral None Reported. Results Created Date Observation Date Name Description Value Unit Range Abnormal Flag Note LastModifiedBy Organization Detail LastModifiedTime 11/18/1911/21/2022 URINE CULTU RESHREYA NE urine culture, routine FINAL abnormal Not Available [facility] ([facility]) [address] [facility], [place], [address], 11/21/2022 12:06:45 11/18/1911/21/2022 URINE CULTU RE, ROUTI [...] ng units per mL Not Available [facility] ([facility]) [address] [facility], [place], [address], 11/21/2022 12:06:45 11/18/19 23 11/21/2022 URINE CULTU [...] thopr im/Teresa lfa S Not Available [facility] ([facility]) [address] [facility], [place], [address], 11/21/2022 12:06:45 11/18/19 23 11/17/2022 pregn jamila test, urine Unknown Analyte Normal = Negati ve Not Available [address] [facility], [place], [address], 11/17/2022 08:51:36 11/18/19 23 11/17/2022 pregn jamila test, urine Unknown Analyte negati ve Not Available jose armando chavez [address], [place], [address], 11/17/2022 08:51:36 11/18/19 23 11/17/2022 urina lysis , dipst ick Unknown Analyte Normal = light yellow Not Available 2099jose armando chavez [address], [place], [address], 11/17/2022 08:51:28 11/18/1911/17/2022 urina lysis , dipst ick Unknown Analyte Yellow Not [facility] [address], [place], [address], 11/17/2022 08:51:28 11/18/19 23 11/17/2022 urina lysis , dipst ick Unknown Analyte Cloudy Not Available [facility] [address], [place], [address], 11/17/2022 08:51:28 11/18/1911/17/2022 urina lysis , dipst ick Unknown Analyte Normal = clear Not Available jose armando chavez [address], [place], [address], 11/17/2022 08:51:28 11/18/1911/17/2022 urina lysis , dipst ick Unknown Analyte Normal = negati ve Not Available 2099jose armando chavez [address], [place], [address], 11/17/2022 08:51:28 11/18/19 23 11/17/2022 urina lysis , dipst ick Unknown Analyte Negati ve Not Available jose armando [address], [place], [address], 11/17/2022 08:51:28 11/18/19 23 11/17/2022 urina lysis , dipst ick Unknown Analyte Normal = Negati ve Not Available 2099jose armando chavez [address], [place], [address], 11/17/2022 08:51:28 11/18/19 23 11/17/2022 urina lysis , dipst ick Unknown Analyte Negati ve Not Available 2099jose armando chavez [address], [place], [address], 11/17/2022 08:51:28 11/18/1911/17/2022 urina lysis , dipst ick Unknown Analyte Normal = Negati ve Not Available 2099jose armando chavez [address], [place], [address], 11/17/2022 08:51:28 11/18/19 23 11/17/2022 urina lysis , dipst ick Unknown Analyte 40 mg/dL Not Available jose armando chavez [address], [place], [address], 11/17/2022 08:51:28 11/18/19 23 11/17/2022 urina lysis , dipst ick Unknown Analyte Normal = 1.010, 1.015, 1.020 Not Available jose armando chavez [address], [place], [address], 11/17/2022 08:51:28 11/18/19 23 11/17/2022 urina lysis , dipst ick Unknown Analyte 1.030 Not Available [address] [place], [place] [address]keanu [address], [place], [address], 11/17/2022 08:51:28 11/18/19 23 11/17/2022 urina lysis , dipst ick Unknown Analyte Normal = Negati ve Not Available [facility] [address], [place], [address], 11/17/2022 08:51:28 11/18/1911/17/2022 urina lysis , dipst ick Unknown Analyte Large Not Available [facility] [address], [place], [address], 11/17/2022 08:51:28 11/18/1911/17/2022 urina lysis , dipst ick Unknown Analyte Normal = 6.5, 7.0, 7.5, 8.0 Not Available jose armando chavez [address], [place], [address], 11/17/2022 08:51:28 11/18/19 23 11/17/2022 urina lysis , dipst ick Unknown Analyte 6.5 Not Available [facility] [address], [place], [address], 11/17/2022 08:51:28 11/18/1911/17/2022 urina lysis , dipst ick Unknown Analyte Normal = Negati ve Not Available jose armando chavez [address], [place], [address], 11/17/2022 08:51:28 11/18/1911/17/2022 urina lysis , dipst ick Unknown Analyte 300 mg/dL Not Available jose armando chavez [address], [place], [address], 11/17/2022 08:51:28 11/18/1911/17/2022 urina lysis , dipst ick Unknown Analyte Normal = 0.2, 1.0 Not Available jose armando chavez [address], [place], [address], 11/17/2022 08:51:28 11/18/19 23 11/17/2022 urina lysis , dipst ick Unknown Analyte 2.0 E.U./d L Not Available 2099jose armando [address], [place], [address], 11/17/2022 08:51:28 11/18/19 23 11/17/2022 urina lysis , dipst ick Unknown Analyte Normal = Negati ve Not Available [address] [place] [address], [place], [address], 11/17/2022 08:51:28 11/18/19 23 11/17/2022 urina lysis , dipst ick Unknown Analyte Positi ve Not Available [address] [place] [address], [place], [address], 11/17/2022 08:51:28 11/18/19 23 11/17/2022 urina lysis , dipst ick Unknown Analyte Normal = Negati ve Not Available [address], [place], [address], 11/17/2022 08:51:28 11/18/19 23 11/17/2022 urina lysis , dipst ick Unknown Analyte Small Not Available [address] [place] [address], [place], [address], 11/17/2022 08:51:28 11/29/19 23 12/01/2022 BETA STREP GP A CULTU RE beta strep gp A culture NEGATI VE Refer ence Range : Negat alicja Not Available [facility] ([facility]) [address] [facility], [place], [address], 12/01/2022 06:08:39 11/29/19 23 11/28/2022 rapid strep group A, throa t Unknown Analyte Normal = Negati ve Not Available [address] [place] [address], [place], [address], 11/28/2022 15:17:18 11/29/19 23 11/28/2022 rapid strep group A, throa t Unknown Analyte negati ve Not Available [address] [address] [place] [address], [place], [address], 11/28/2022 15:17:18 Result Notes None recorded. Problems [...] 3 154.94 cm 17.6 kg/m2 4 % 85900.0 9 g 18 /min 4 100 % [...] 3 154.94 cm 4 % 17.6 kg/m2 60181.0 9 g 8 18 /min 100 % [...] 30 mcg/0.3 mL dose 1 completed Siena Nogal null, [place] - [facility] 11/17/2022 08:51:01 COVID-19, mRNA, LNP-S, PF, 30 mcg/0.3 mL dose 1 completed Siena Nogal null, PA - [facility] 11/17/2022 08:51:01 COVID-19, mRNA, LNP-S, PF, 30 mcg/0.3 mL dose, la-sucrose 2 completed Siena Nogal null, PA - [facility] 11/17/2022 08:51:01 COVID-19, mRNA, LNP-S, bivalent, PF, 30 mcg/0.3 mL dose 3 completed Siena Tony null, PA - [facility] 11/17/2022 08:51:01 meningococcal MCV4P 0 completed Siena Tony null, PA - [facility] 11/17/2022 08:51:01 Influenza, split virus, quadrivalent, PF 1 completed Siena Nogal null, PA - [facility] 11/17/2022 08:51:01 Influenza, split virus, quadrivalent, PF 3 completed Siena Nogal null, PA - [facility] 11/17/2022 08:51:01 Influenza, split virus, quadrivalent, PF 8 completed Siena Tony null, PA - [facility] 11/17/2022 08:51:01 Influenza, split virus, quadrivalent, PF 1 completed Siena Nogal null, PA - [facility] 11/17/2022 08:51:01 Influenza, split virus, quadrivalent, PF 6 completed Siena Nogal null, [place] - [facility] 11/17/2022 08:51:01 Past Encounters Encounter ID Performer Location Encounter Start Date Encounter Closed Date Diagnosis/Indication Diagnosis SNOMED-CT Code Diagnosis ICD10 Code Diagnosis IMO Codes Diagnosis Note [id number] [facility] [address] [address] 05/29/2019 11:24:22 05/29/2019 12:53:05 [id number] [facility] [address] [place] [address] 06/30/2021 16:17:26 06/30/2021 17:36:13 [id number] [facility] [address] [place] [address] 11/17/2022 08:09:44 11/17/2022 09:28:39 Dysuria 87567454 R30.0 Urine dip does suggest UTI.Pregna ncy Test was negative. [id number] Emiliano Og MD [address] [place] [address] 11/28/2022 13:46:21 11/28/2022 16:15:35 Acute pharyngitis [id number] J02.9 Please follow up with PCP or [...] Andersen Member ID Guarantor Name 01/16/2023 1 [facility] - OPEN ACCESS PLUS - [facility] (PPO) [id number] Padmini Brooks [id number] Padmini Brooks 11/28/2022 1 [facility] [id number] Padmini Brooks [id number] Padmini Brooks 12/08/2022 2 [facility] [id number] Elmer Richardsong [id number] Padmini Brooks 01/16/2023 1 [facility] - OPEN ACCESS PLUS [id number] Padmini Brooks [id number] Padmini Brooks Notes Date Note Type [...] now. [facility] GARCIA [address] [place], [address], [employer] 11/17/2022 09:18:28 3 text/html Sore throatReported by [...] Emiliano Og MD [address] [place], [address], [employer] 11/28/2022 18:48:51 OBGyn Episode No OBEpisode recorded.
[2025-05-13 15:34] VITALS: BP 00/00; PULSE 98; RESP 16; TEMP 37.2; O2SAT 98
== END 2025-05-13 15:35 | disposition home or self-care (01) ==
PROVIDERS: Physician Assistant; Emergency Provider Emergency Medicine Emergency Medical Services; PCP Internal Medicine
DX: J10.1 Influenza due to other identified influenza virus with other respiratory manifestations (principal); F90.9 Attention-deficit hyperactivity disorder, unspecified type; F41.9 Anxiety disorder, unspecified; Z03.818 Encounter for observation for suspected exposure to other biological agents ruled out; Z79.899 Other long term (current) drug therapy
CPT/HCPCS: 80048; 80076; 83735; 85025; 87637; 87651; 93005; 99283; 99284

== ENCOUNTER → 2025-05-13 14:45 | Outpatient (BNV) | payer OTHER, SELFPAY | PROVIDERS: Emergency Provider Emergency Medicine Emergency Medical Services; PCP Internal Medicine; Visit Provider Internal Medicine | DX: R00.0 Tachycardia, unspecified (principal) | CPT/HCPCS: 93010 ==